=== PATIENT | female | born 1990 | race Caucasian/White ===

== ENCOUNTER 2019-02-23 22:48 | Emergency (ER) | payer MEDICAID ==
[~2019-02-23] VITALS: Ht 162.6 cm; Wt 109.1 kg
[2019-02-24] MEDS ORDERED: IBUP80TA PO (01:08)
[2019-02-24] MEDS ORDERED: KETOROLAC TROMETHAMINE 10 MG TAB PO ONE (01:15)
[2019-02-24 01:19] VITALS: BP 116/59
--- NOTE | 2019-02-24 08:48 | REP ---
Right foot four views : There is no fracture or dislocation. Mineralization and joint spaces are normal. There are no calcifications or foreign bodies. Impression: Negative right foot . Electronically Signed by Miguel Bueno MD 02/24/2019 08:39 A
== END 2019-02-24 01:21 | disposition home or self-care (01) ==
LOC: M ED 22:48
DX: S93.501A Unspecified sprain of right great toe, initial encounter (principal); X58.XXXA Exposure to other specified factors, initial encounter; Y92.89 Other specified places as the place of occurrence of the external cause

== ENCOUNTER 2019-06-08 21:53 | Day surgery (SDC) | payer MEDICAID, OTHER ==
[~2019-06-08] VITALS: Ht 162.6 cm; Wt 108.0 kg
[~2019-06-08 21:53] MED LIST: IBUP80TA PO
[2019-06-08] MEDS ORDERED: MORPHINE 2 MG/ML 1ML VIAL (J2270) IV ONE (22:15)
[2019-06-08] MEDS ORDERED: ONDANSETRON 4MG/2ML VIAL (J2405) IV ONE (22:15)
[2019-06-08 22:37] LABS: BASO % 0.3 % (0.0-1.0); EOS # 0.2 10^3/uL (0.0-0.5); EOS % 1.5 % (0.0-3.0); HEMATOCRIT 42.7 % (36.0-47.0); HEMOGLOBIN 13.9 g/dl (12.0-15.5); LYMPH # 2.7 10^3/uL (1.5-5.0); MEAN CORPUSCULAR HEMOGLOBIN 28.9 pg (27.0-33.0); MEAN CORPUSCULAR HGB CONC 32.6 g/dl (32.0-36.5); MEAN CORPUSCULAR VOLUME 88.8 fl (80.0-96.0); MONO # 0.7 10^3/uL (0.0-0.8); MONO % 5.1 % (0.0-5.0); NEUTROPHILS # 9.3 10^3/uL (1.5-8.5); NEUTROPHILS % 71.7 % (36.0-66.0); PLATELET COUNT, AUTOMATED 281 10^3/uL (150-450); RED BLOOD COUNT 4.81 10^6/uL (4.00-5.40)
[2019-06-08] MEDS ORDERED: ISOVUE-370 76% 100ML VIAL (Q9967) As Ordered ONE (22:45)
[2019-06-08 22:57] LABS: BLOOD UREA NITROGEN 12 MG/DL (7-18); CREATININE FOR GFR 0.96 MG/DL (0.55-1.30); GLUCOSE, FASTING 85 MG/DL (70-100)
[2019-06-08 22:58] LABS: ALBUMIN 3.7 GM/DL (3.2-5.2); ALT/SGPT 30 U/L (12-78); BILIRUBIN,DIRECT < 0.1 MG/DL (0.0-0.2); BILIRUBIN,TOTAL 0.4 MG/DL (0.2-1.0); CALCIUM LEVEL 9.1 MG/DL (8.5-10.1); CARBON DIOXIDE LEVEL 26 MEQ/L (21-32); CHLORIDE LEVEL 108 MEQ/L (98-107); GLOMERULAR FILTRATION RATE > 60.0 (>60); LIPASE 160 U/L (73-393); POTASSIUM SERUM 3.7 MEQ/L (3.5-5.1); SODIUM LEVEL 141 MEQ/L (136-145)
[2019-06-08] MEDS ORDERED: NS 1,000 ML IV ONE (23:45)
--- NOTE | 2019-06-08 23:51 | REPVR ---
PROCEDURE INFORMATION: Exam: CT Abdomen And Pelvis With Contrast Exam date and time: 06/08/2019 11:07 PM Clinical history: 29 years old, female; Abdominal pain; Localized; Upper; Additional info: Upper abd pain, eval for pancreatitis, pyelonephritis TECHNIQUE: Imaging protocol: Computed tomography of the abdomen and pelvis with intravenous contrast. Axial, coronal and sagittal reformatted images were created and reviewed. Radiation optimization: All CT scans at this facility use at least one of these dose optimization techniques: automated exposure control; mA and/or kV adjustment per patient size (includes targeted exams where dose is matched to clinical indication); or iterative reconstruction. Contrast material: ISOVUE 370; Contrast volume: 100 ml; Contrast route: IV; COMPARISON: No relevant prior studies available. FINDINGS: Mediastinum: Small hiatal hernia. Liver: Mild hepatomegaly. Mild hepatic steatosis. Gallbladder and bile ducts: No radiodense gallstones. No biliary ductal dilatation. Pancreas: Unremarkable. Spleen: Unremarkable. Adrenals: Unremarkable. Kidneys and ureters: Punctate nonobstructing left renal calculus. No hydronephrosis. Stomach and bowel: No bowel wall thickening. No obstruction. No pneumatosis. Appendix: Dilated (10 mm), somewhat thickened appendix with subtle periappendiceal haziness. Intraperitoneal space: Trace nonspecific free pelvic fluid, likely physiologic. No organized fluid collection. No free air. Vasculature: Unremarkable. No aneurysm. Lymph nodes: No pathologically enlarged lymph nodes. Bladder: Unremarkable. Reproductive: Probable involuting left ovarian corpus luteal cyst. Bones/joints: No acute osseous abnormality. Soft tissues: Small, fat-containing umbilical hernia. IMPRESSION: 1. Dilated, somewhat thickened appendix with subtle periappendiceal haziness, concerning for mild/early acute appendicitis. No abscess, obstruction or free air. 2. Additional findings, as above. Electronically signed by: Sammy Eagle On 06/08/2019 23:50:45 PM
[2019-06-09] MEDS ORDERED: PIPERACILLIN/TAZOBACTAM SOD 3.375 GM in D5W MINI-BAG PLUS 50 ML IV ONE ×2
[2019-06-09] MEDS ORDERED: MORPHINE 4 MG/ML 1ML VIAL/SYRINGE (J2270) IV PRN (00:15)
[2019-06-09] MEDS ORDERED: ONDANSETRON 4MG/2ML VIAL (J2405) IV PRN ×2 (00:15→13:45)
[2019-06-09] MEDS ORDERED: 12 H0.05 NARES (00:20)
[2019-06-09] MEDS ORDERED: ACET-908 PO (00:20)
[2019-06-09 00:57] VITALS: BP 121/78
[2019-06-09] MEDS: LR 1,000 ML IV SCH ×2 (01:25→09:37)
[2019-06-09 02:54] VITALS: BP 133/80
[2019-06-09 06:00] VITALS: BP 114/64
[2019-06-09] MEDS ORDERED: KETOROLAC 30 MG/ML VIAL (J1885) IV PRN ×2 (09:45→13:45)
[2019-06-09] MEDS ORDERED: NORCO, ANEXSIA 5/325MG TABLET (HYDROcodone/ACETAMINOPHEN) PO PRN (09:45)
[2019-06-09] MEDS ORDERED: ACETAMINOPHEN TAB 650MG DOSE (2X325MG) PO PRN (09:45)
--- NOTE | 2019-06-09 10:48 | HPE ---
DATE OF ADMISSION: 06/09/2019 CHIEF COMPLAINT: Abdominal pain. HISTORY OF PRESENT ILLNESS: The patient is a 29-year-old female, who presents with generalized abdominal pain, one episode of nausea and vomiting that started on Sunday morning. Pain got progressively worse throughout the day Sunday and into Sunday. Sunday evening she came to emergency room, found to have slightly a elevated white count at 13 as well as findings suggestive of early appendicitis on her CT. I was called to admit her. This morning she is still having persistent pain. She is more tender in the right side than on the left. No problems with urination or bowel movements. No recent trauma. No changes with recent illnesses. PAST MEDICAL HISTORY: Negative. PAST SURGICAL HISTORY: Tonsils and adenoids. ALLERGIES: None. MEDICATIONS: None. SOCIAL HISTORY: Denies drug, alcohol, tobacco usage. FAMILY HISTORY: Noncontributory. REVIEW OF SYSTEMS: Pertinent positives and negatives as stated in the HPI. PHYSICAL EXAMINATION: Alert and oriented times three. No acute stress. Vital signs: Temperature 98.3, pulse 75, respirations 16, blood pressure 114/64, pulse oximetry 98% room air. HEENT: Pupils equal, round and react to light and accommodation. Heart: S1, S2, regular rate and rhythm. Lungs: Clear to auscultation bilaterally. Abdomen: Soft, nondistended. Tender to palpation diffusely with most tenderness in the right lower quadrant. No guarding or rigidity. Extremities: No clubbing, cyanosis or edema. LABORATORY DATA: White count 13, hemoglobin 13.9, platelets 281. Potassium 3.7, creatinine 0.96. IMAGING: CT abdomen and pelvis shows dilated thickened appendix with subtle periappendiceal haziness concerns for mild versus acute appendicitis. No abscess obstruction or free air. ASSESSMENT/PLAN: The patient is a 29-year-old female with acute appendicitis. RECOMMENDATIONS: Proceed with laparoscopic appendectomy. Risks and benefits of the procedure not limited but including bleeding, infection, hernia formation, damage to surrounding structures and need for further surgery were discussed in detail with the patient. Informed was obtained and procedure was planned for this afternoon. Postoperatively, plan will be to likely discharge her home today and she will followup me as an outpatient for post-op.
[2019-06-09] MEDS ORDERED: AMPICILLIN SOD/SULBACTAM SOD 3 GM in D5W MINI-BAG PLUS 100 ML IV SCH (11:00)
[2019-06-09] MEDS ORDERED: ROCURONIUM BROMIDE 50 MG/5 ML VIAL As Ordered ONE (11:35)
[2019-06-09] MEDS ORDERED: LIDOCAINE 2% INJ 100 MG/5 ML SDV (FOR ANES.) As Ordered ONE (11:35)
[2019-06-09] MEDS ORDERED: fentaNYL 250 MCG/5 ML INJECTION (J3010) As Ordered ONE (11:35)
[2019-06-09] MEDS ORDERED: PROPOFOL 200 MG/20 ML VIAL As Ordered ONE (11:35)
[2019-06-09] MEDS ORDERED: MIDAZOLAM INJ 2 MG/2 ML VIAL (J2250) As Ordered ONE (11:36)
[2019-06-09] MEDS ORDERED: BUPIVACAINE/EPIN 0.25% 30 ML VIAL As Ordered ONE (12:04)
[2019-06-09] MEDS ORDERED: SUGAMMADEX SODIUM 500 MG/5 ML VIAL (BRIDION) As Ordered ONE (12:55)
[2019-06-09] MEDS ORDERED: ACETAMINOPHEN 1000MG 100ML IV BTL (OFIRMEV) (J0131 PER 10MG) As Ordered ONE (12:56)
[2019-06-09] MEDS ORDERED: dexameTHASONE 4 MG/ML 1ML VIAL (J1100) As Ordered ONE (12:56)
[2019-06-09] MEDS ORDERED: KETOROLAC 60 MG/2 ML VIAL (J1885) As Ordered ONE (12:56)
[2019-06-09] MEDS ORDERED: ONDANSETRON 4MG/2ML VIAL (J2405) As Ordered ONE ×2 (12:56→13:27)
[2019-06-09] MEDS ORDERED: METOCLOPRAMIDE INJ 10MG/2ML VIAL (J2765) As Ordered ONE (13:27)
[2019-06-09] MEDS ORDERED: oxyCODONE 5MG TAB As Ordered ONE ×2 (13:27→14:01)
--- NOTE | 2019-06-09 13:29 | RO ---
DATE OF PROCEDURE: 06/09/2019 PREOPERATIVE DIAGNOSIS: Acute appendicitis. POSTOPERATIVE DIAGNOSIS: Acute appendicitis. PROCEDURE: Laparoscopic cholecystectomy. SURGEON: Dr. Fatima DESIGN AGENT: None. ANESTHESIA: General. ESTIMATED BLOOD LOSS: 5. COMPLICATIONS: None. INDICATIONS FOR PROCEDURE: The patient is a 29-year-old female, who presents with right lower quadrant pain and found to have acute appendicitis on CT. Recommendation is to proceed with laparoscopic repair. Risks and benefits of the procedure are not limited to but including bleeding, infection, hernia formation, damage to surrounding structures or need for further surgery were discussed in detail with the patient. Informed consent obtained and procedure was planned. DESCRIPTION OF PROCEDURE: The patient brought back to operating room #3. After sufficient sedation, the abdomen was sterilely prepped and draped. Next, a time-out was done to confirm proper patient and proper procedure. Following that a 5 mm incision made in left lower quadrant, Veress needle was inserted and the abdomen was insufflated to 15 mmHg. Next, the Veress needle was removed and a 5 mm Optiview port was used to gain access to the abdomen. Once the abdomen was entered, another 8 mm supraumbilical midline incision was made, another 5 mm suprapubic midline incision made and ports were placed. Next, the patient was placed in Trendelenburg position. The cecum was identified. The appendix was freely mobile. The mesoappendix was taken down towards the base of the appendix using the Enseal. Once the base the appendix was reached it was encircled with two PDS Endoloops and ligated using the Enseal. The appendix was then placed inside of the 5 mm EndoCatch bag and brought out through the supraumbilical port site. Once the appendix was removed, the abdomen was examined. Ports were removed. The abdomen was desufflated. Skin incisions were closed with #4-0 Vicryl subcuticular sutures. The abdomen was cleaned and dried. Steri-Strips, 4 x 4 and tape were applied, thus ending procedure.
[2019-06-09] MEDS ORDERED: AUGM875T28 PO (13:30)
[2019-06-09] MEDS: oxyCODONE 5MG TAB PO PRN ×2 (13:30→14:04)
[2019-06-09] MEDS ORDERED: HYDR-4571 PO (13:30)
[2019-06-09] MEDS ORDERED: fentaNYL 100 MCG/2 ML INJECTION (J3010) As Ordered ONE (13:37)
[2019-06-09] MEDS: fentaNYL 100 MCG/2 ML INJECTION (J3010) IV PRN ×3 (13:40→15:40)
[2019-06-09] MEDS ORDERED: METOCLOPRAMIDE INJ 10MG/2ML VIAL (J2765) IV PRN (13:45)
[2019-06-09] MEDS ORDERED: LR 1,000 ML IV SCH (13:45)
[2019-06-09] MEDS ORDERED: MEPERIDINE INJ 25 MG/ML VIAL (J2175) IV PRN (13:45)
[2019-06-09 14:40] VITALS: BP 134/79
--- NOTE | 2019-06-09 15:00 | ECGEPIP ---
[facility] Test Date: 2019-06-09 Pat Name: LUIS REINOSO Department: Room: S1761-14 Gender: Female Sales Administrator: : 1990 Requested By: MARYJANE Brewster Order Number: [id number] Reading MD: David Tate Measurements Intervals [place] Rate: 59 P: 21 PA: 166 QRS: 17 QRSD: 107 T: 29 QT: 423 QTc: 421 Interpretive Statements SINUS BRADYCARDIA, Poor R wave progression, Low limb lead voltages. No prior ECG available for comparison at the time of interpretation. Electronically Signed on 06-09-2019 15:00:23 EDT by David Tate
[2019-06-09 15:10] VITALS: BP 139/80
[2019-06-09] MEDS ORDERED: SENOKOT S TAB PO SCH (21:00)
== END 2019-06-09 17:17 | disposition home or self-care (01) ==
LOC: M ED 21:53 → M SDC 06-09 00:05 → M MS5PR 06-09 00:45 → M PED 06-09 11:55 → M SDC 06-09 17:17
PROVIDERS: ATTEND Surgery
DX: K35.890 Other acute appendicitis without perforation or gangrene (principal); E66.9 Obesity, unspecified
CPT/HCPCS: 36415; 44970; 80048; 80076; 81001; 83605; 83690; 84702; 85025; 87086; 88304; 93005; 96361; 96374; 96375; 96376; 99284; J0131; J1100; J1885; J2250; J2270; J2405; J2543; J2765; J3010; Q9967

== ENCOUNTER 2019-06-19 20:53 | Emergency (ER) | payer OTHER ==
[~2019-06-19] VITALS: Ht 162.6 cm; Wt 109.1 kg
[2019-06-19 20:53] VITALS: BP 136/69
[~2019-06-19 20:53] MED LIST changes: +12 H0.05 NARES; +ACET-908 PO; +AUGM875T28 PO; +HYDR-4571 PO
[2019-06-19 21:57] LABS: HEMOGLOBIN 13.6 g/dl (12.0-15.5); MEAN CORPUSCULAR HEMOGLOBIN 28.8 pg (27.0-33.0); MEAN CORPUSCULAR HGB CONC 32.4 g/dl (32.0-36.5); MEAN CORPUSCULAR VOLUME 88.8 fl (80.0-96.0); PLATELET COUNT, AUTOMATED 312 10^3/uL (150-450); RED BLOOD COUNT 4.73 10^6/uL (4.00-5.40); WHITE BLOOD COUNT 11.3 10^3/uL (4.0-10.0)
[2019-06-19] MEDS ORDERED: NS 1,000 ML IV ONE (22:15)
[2019-06-19] MEDS ORDERED: KETOROLAC 30 MG/ML VIAL (J1885) IV ONE (22:15)
[2019-06-19] MEDS ORDERED: ONDANSETRON 4MG/2ML VIAL (J2405) IV ONE (22:15)
[2019-06-19 22:21] LABS: ALBUMIN 3.8 GM/DL (3.2-5.2); ALT/SGPT 31 U/L (12-78); BILIRUBIN,TOTAL 0.2 MG/DL (0.2-1.0); BLOOD UREA NITROGEN 10 MG/DL (7-18); CALCIUM LEVEL 9.2 MG/DL (8.5-10.1); CARBON DIOXIDE LEVEL 27 MEQ/L (21-32); CHLORIDE LEVEL 109 MEQ/L (98-107); CREATININE FOR GFR 0.88 MG/DL (0.55-1.30); GLOMERULAR FILTRATION RATE > 60.0 (>60); GLUCOSE, FASTING 104 MG/DL (70-100); LIPASE 190 U/L (73-393); POTASSIUM SERUM 3.7 MEQ/L (3.5-5.1); SODIUM LEVEL 141 MEQ/L (136-145); TOTAL PROTEIN 7.2 GM/DL (6.4-8.2)
[2019-06-19] MEDS ORDERED: ISOVUE-370 76% 100ML VIAL (Q9967) As Ordered ONE (22:24)
--- NOTE | 2019-06-19 22:57 | REPVR ---
PROCEDURE INFORMATION: Exam: CT Abdomen And Pelvis With Contrast Exam date and time: 06/19/2019 10:31 PM Clinical history: 29 years old, female; Abdominal pain; Generalized; Prior surgery; Surgery date: 3-7 days post-operative; Surgery type: Appendectomy 1wk ago; Additional info: 1wk post appy, severe general abd pain, n TECHNIQUE: Imaging protocol: Computed tomography of the abdomen and pelvis with intravenous contrast. Axial, coronal and sagittal reformatted images were created and reviewed. Radiation optimization: All CT scans at this facility use at least one of these dose optimization techniques: automated exposure control; mA and/or kV adjustment per patient size (includes targeted exams where dose is matched to clinical indication); or iterative reconstruction. Contrast material: ISOVUE 370; Contrast volume: 100 ml; Contrast route: IV; COMPARISON: CT ABD/PEL W/IV CONTRAST ONLY 06/08/2019 11:05 PM FINDINGS: Liver: Mild hepatomegaly. Diffuse hepatic steatosis. Gallbladder and bile ducts: No radiodense gallstones. No biliary ductal dilatation. Pancreas: Unremarkable. Spleen: Unremarkable. Adrenals: Unremarkable. Kidneys and ureters: No mass. No radiodense calculi. No hydronephrosis. Stomach and bowel: No bowel wall thickening. No obstruction. No pneumatosis. Appendix: Postoperative changes associated with recent appendectomy. Intraperitoneal space: No free fluid. No organized fluid collection. No free air. Vasculature: Unremarkable. No aneurysm. Lymph nodes: No pathologically enlarged lymph nodes. Bladder: Unremarkable. Reproductive: Unremarkable. Bones/joints: No acute osseous abnormality. Mild degenerative changes. Soft tissues: Small, fat-containing umbilical hernia. IMPRESSION: 1. Postoperative changes associated with recent appendectomy. No evidence of postsurgical complication. 2. Additional findings, as above. Electronically signed by: Sammy Eagle On 06/19/2019 22:57:15 PM
[2019-06-19] MEDS ORDERED: PERCOCET 5MG/325MG TAB PO ONE (23:15)
[2019-06-19] MEDS ORDERED: MORPHINE 4 MG/ML 1ML VIAL/SYRINGE (J2270) IV ONE (23:15)
[2019-06-20] MEDS ORDERED: fentaNYL 100 MCG/2 ML INJECTION (J3010) IV ONE (00:30)
[2019-06-20] MEDS ORDERED: NORC1TAB7 PO (01:13)
== END 2019-06-20 01:27 | disposition home or self-care (01) ==
LOC: M ED 20:53
DX: R10.84 Generalized abdominal pain (principal); Z98.890 Other specified postprocedural states
CPT/HCPCS: 74177; 80053; 81001; 83605; 83690; 84702; 85027; 87040; 96374; 96375; 99284; J1885; J2405; J3010; Q9967

== ENCOUNTER 2019-09-23 22:08 | Emergency (ER) | payer OTHER ==
[~2019-09-23] VITALS: Ht 162.6 cm; Wt 95.5 kg
--- NOTE | 2019-09-24 00:15 | REPVR ---
PROCEDURE INFORMATION: Exam: US First Trimester, Transabdominal Exam date and time: 09/23/2019 11:23 PM Age: 29 years old Clinical indication: complicated by abdominal or pelvic pain; Lower; First trimester; Gestational age or lmp: Lmp 08/02/19; ; Additional info: R pelvic pain 7wks preg TECHNIQUE: Imaging protocol: Real-time transabdominal obstetrical ultrasound of the maternal pelvis and a first trimester , less than 14 weeks 0 days, with image documentation. COMPARISON: CT ABD/PEL W/IV CONTRAST ONLY 06/08/2019 11:05 PM FINDINGS: GESTATION: Gestation: Single living intrauterine . Heart rate: 163 beats per minute. Placenta: No subchorionic hemorrhage. Amniotic fluid: Normal for gestational age. BIOMETRY: Estimated gestational age: 8 weeks 5 days [place]Rump length: 2.1 cm. Estimated due date: Estimated date of delivery: 04/29/2020. MATERNAL: Uterus: Unremarkable. Cervix: Unremarkable. Right adnexa: Unremarkable. Left adnexa: Unremarkable. Intraperitoneal: No intraperitoneal free fluid. IMPRESSION: 1. Single living intrauterine with estimated gestational age of 8 weeks 5 days. 2. No abnormalities are seen. Electronically signed by: Juan Griffin On 09/24/2019 00:15:07 AM
[2019-09-24 00:24] LABS: APPEARANCE, URINE HAZY (CLEAR); BACTERIA, URINE AUTO NEGATIVE (NEGATIVE); BILIRUBIN, URINE AUTO NEGATIVE (NEGATIVE); BLOOD, URINE BLOOD NEGATIVE (NEGATIVE); COLOR, URINE YELLOW (YELLOW); GLUCOSE, URINE (UA) AUTO NEGATIVE (NEGATIVE); KETONE, URINE AUTO NEGATIVE (NEGATIVE); LEUKOCYTE ESTERASE, URINE AUTO TRACE (NEGATIVE); MUCUS, URINE SMALL (NEGATIVE); NITRITE, URINE AUTO NEGATIVE (NEGATIVE); PROTEIN, URINE AUTO NEGATIVE (NEGATIVE); RBC, URINE AUTO 2 /HPF (0-3); SPECIFIC GRAVITY URINE AUTO 1.014 (1.002-1.035); SQUAMOUS EPITHELIAL CELL UR AU 2 /HPF (0-6); UROBILINOGEN, URINE AUTO 0.2 mg/dL (0.0-2.0); WBC, URINE AUTO 1 /HPF (0-3)
[2019-09-24 00:25] LABS: HEMATOCRIT 41.6 % (36.0-47.0); HEMOGLOBIN 14.1 g/dl (12.0-15.5); MEAN CORPUSCULAR HEMOGLOBIN 29.4 pg (27.0-33.0); MEAN CORPUSCULAR HGB CONC 33.9 g/dl (32.0-36.5); MEAN CORPUSCULAR VOLUME 86.7 fl (80.0-96.0); PLATELET COUNT, AUTOMATED 283 10^3/uL (150-450)
[2019-09-24 00:35] LABS: ALBUMIN 3.5 GM/DL (3.2-5.2); ALT/SGPT 19 U/L (12-78); BILIRUBIN,TOTAL 0.5 MG/DL (0.2-1.0); BLOOD UREA NITROGEN 8 MG/DL (7-18); CALCIUM LEVEL 9.1 MG/DL (8.5-10.1); CARBON DIOXIDE LEVEL 22 MEQ/L (21-32); CHLORIDE LEVEL 107 MEQ/L (98-107); CREATININE FOR GFR 0.69 MG/DL (0.55-1.30); GLOMERULAR FILTRATION RATE > 60.0 (>60); GLUCOSE, FASTING 78 MG/DL (70-100); POTASSIUM SERUM 3.9 MEQ/L (3.5-5.1); SODIUM LEVEL 139 MEQ/L (136-145); TOTAL PROTEIN 6.7 GM/DL (6.4-8.2)
[2019-09-24 00:59] VITALS: BP 139/76
[2019-09-24 01:05] LABS: HCG, SERUM QUANTITATIVE 62192 MIU/ML
== END 2019-09-24 01:00 | disposition home or self-care (01) ==
LOC: M ED 22:08
DX: O26.891 Other specified pregnancy related conditions, first trimester (principal); R10.9 Unspecified abdominal pain; Z3A.08 8 weeks gestation of pregnancy

== ENCOUNTER → 2019-09-23 | Outpatient (REF) | payer OTHER ==
[~2019-09-23] MED LIST changes: +NORC1TAB7 PO
== END ==
LOC: M LAB REF 18:59
PROVIDERS: ATTEND Nurse Practitioner Family
DX: R35.0 Frequency of micturition (principal)

== ENCOUNTER → 2019-10-13 | Outpatient (CLI) | payer OTHER ==
[2019-10-13 12:52] LABS: BASO % 0.4 % (0.0-1.0); EOS # 0.3 10^3/uL (0.0-0.5); EOS % 2.8 % (0.0-3.0); HEMATOCRIT 40.2 % (36.0-47.0); HEMOGLOBIN 13.4 g/dl (12.0-15.5); LYMPH # 2.2 10^3/uL (1.5-5.0); MEAN CORPUSCULAR HEMOGLOBIN 28.9 pg (27.0-33.0); MEAN CORPUSCULAR HGB CONC 33.3 g/dl (32.0-36.5); MEAN CORPUSCULAR VOLUME 86.6 fl (80.0-96.0); MONO # 0.6 10^3/uL (0.0-0.8); NEUTROPHILS # 6.1 10^3/uL (1.5-8.5); NEUTROPHILS % 66.4 % (36.0-66.0); PLATELET COUNT, AUTOMATED 247 10^3/uL (150-450); RED BLOOD COUNT 4.64 10^6/uL (4.00-5.40); WHITE BLOOD COUNT 9.2 10^3/uL (4.0-10.0)
[2019-10-13 13:17] LABS: GLUCOSE CHALLENGE TEST 1 HOUR 111 MG/DL (LESS THAN 140)
[2019-10-13 13:42] LABS: RUBELLA IgG QUALITATIVE IMMUNE (IMMUNE)
[2019-10-13 14:11] LABS: HEPATITIS C VIRUS ABY INDEX < 0.0 INDEX (<0.8)
[2019-10-13 14:12] LABS: HIV 1&2 SCREEN CENTAUR NEGATIVE (NEGATIVE)
[2019-10-13 14:16] LABS: CHLAMYDIA DNA AMPLIFICATION NEGATIVE (NEGATIVE); GC DNA AMPLIFICATION NEGATIVE (NEGATIVE)
== END ==
LOC: M PLALAB 08:31
PROVIDERS: ATTEND Advanced Practice Midwife
DX: O99.211 Obesity complicating pregnancy, first trimester (principal)

== ENCOUNTER → 2019-11-12 | Outpatient (REF) | payer OTHER | LOC: M SFHCWAGY 16:58 | PROVIDERS: ATTEND Advanced Practice Midwife | DX: Z34.82 Encounter for supervision of other normal pregnancy, second trimester (principal) ==

== ENCOUNTER → 2019-12-10 | Outpatient (CLI) | payer OTHER ==
--- NOTE | 2019-12-11 04:44 | REP ---
Clinical: Anatomical evaluation. Comparison: 09/23/2019 . Findings: Examination demonstrates a single live intrauterine in cephalic presentation. motion is identified by technologist. Placenta is noted anterior and grade I without evidence for placenta previa or abruption. Amniotic fluid volume is normal. Cervix measures 3.4 cm in length and appears closed. No evidence for nuchal cord. Gestational age by LMP 19 weeks 6 days with GABY 04/29/2020 . Gestational age by current measurements 19 weeks 6 days with GABY 04/29/2020 . FHR equals 153 beats per minute. BPD 4.6 cm 20 weeks 0 days HC 17.2 cm 19 weeks 5 days AC 14.8 cm 20 weeks 0 days FL 2.9 cm 19 weeks 0 days HL 2.9 cm 19 weeks 3 days HC/AC ratio 1.17 Estimated weight 303 grams ( 37th percentile). Anatomical assessment demonstrates normal structures including cranium, choroid plexus, cavum, cerebellum/posterior fossa, facial features, lungs, diaphragm, stomach, cord insertion/three-vessel cord, kidneys/bladder, spine, and extremities. Impression: Single live intrauterine in cephalic presentation demonstrating appropriate interval growth. Limited evaluation of the heart/ventricular outflow tracts noted. Remainder of the anatomical assessment is complete and normal.
== END ==
LOC: M WHC 09:25
PROVIDERS: ATTEND Advanced Practice Midwife
DX: Z34.82 Encounter for supervision of other normal pregnancy, second trimester (principal); Z36.89 Encounter for other specified antenatal screening; Z3A.19 19 weeks gestation of pregnancy

== ENCOUNTER → 2019-12-18 | Outpatient (CLI) | payer OTHER ==
--- NOTE | 2019-12-18 18:53 | REP ---
Clinical: Anatomical evaluation. Comparison: 12/10/2019 . Findings: Examination demonstrates a single live intrauterine in cephalic presentation. motion is identified by technologist. Placenta is noted anterior and grade I without evidence for placenta previa or abruption. Amniotic fluid volume is normal. Cervix measures 3.5 cm in length and appears closed. No evidence for nuchal cord. Gestational age by LMP 21 weeks 0 days with GABY 04/29/2020 . Gestational age by current measurements 20 weeks 5 days with GABY 05/01/2020 . FHR equals 158 beats per minute. Estimated weight 386 grams ( 43rd percentile). Anatomical assessment demonstrates normal structures including cranium, facial features, lungs, cardiac ventricular outflow tracts, diaphragm, stomach, cord insertion/three-vessel cord, kidneys/bladder. Impression: 1. Single live intrauterine in cephalic presentation demonstrating appropriate interval growth. 2. Continued limited evaluation of the four-chamber heart. Remainder of the anatomical assessment is complete and normal.
== END ==
LOC: M WHC 09:29
PROVIDERS: ATTEND Advanced Practice Midwife
DX: Z34.82 Encounter for supervision of other normal pregnancy, second trimester (principal)

== ENCOUNTER → 2020-01-12 | Outpatient (CLI) | payer OTHER ==
--- NOTE | 2020-01-13 02:50 | REP ---
Clinical: Anatomical evaluation. Comparison: 12/18/2019 . Findings: Examination demonstrates a single live intrauterine in cephalic presentation. motion is identified by technologist. Placenta is noted anterior and grade I without evidence for placenta previa or abruption. Amniotic fluid volume is normal. Cervix measures 3.3 cm in length and appears closed. No evidence for nuchal cord. Gestational age by first US 24 weeks 4 days with GABY 04/29/2020 . Gestational age by current measurements 24 weeks 0 days with GABY 05/03/2020 . FHR equals 144 beats per minute. Estimated weight 691 grams ( 38th percentile). Anatomical assessment again demonstrate suboptimal evaluation of the heart due to positioning. Impression: Single live intrauterine in cephalic presentation demonstrating appropriate estimated weight and growth. Limited evaluation of the heart again noted due to positioning.
== END ==
LOC: M WHC 14:23
PROVIDERS: ATTEND Advanced Practice Midwife
DX: O99.212 Obesity complicating pregnancy, second trimester (principal); Z3A.24 24 weeks gestation of pregnancy

== ENCOUNTER → 2020-01-12 | Outpatient (REF) | payer OTHER ==
[2020-01-12 15:36] LABS: HEMATOCRIT 39.8 % (36.0-47.0); HEMOGLOBIN 12.9 g/dl (12.0-15.5); MEAN CORPUSCULAR HEMOGLOBIN 28.9 pg (27.0-33.0); MEAN CORPUSCULAR HGB CONC 32.4 g/dl (32.0-36.5); PLATELET COUNT, AUTOMATED 256 10^3/uL (150-450); RED BLOOD COUNT 4.47 10^6/uL (4.00-5.40); WHITE BLOOD COUNT 11.8 10^3/uL (4.0-10.0)
== END ==
LOC: M PLALAB 12:04
PROVIDERS: ATTEND Advanced Practice Midwife
DX: O99.212 Obesity complicating pregnancy, second trimester (principal)

== ENCOUNTER → 2020-02-10 | Outpatient (CLI) | payer OTHER ==
[~2020-02-10] MED LIST changes: +OMEP10CASR PO; +PRENTAB9 PO
--- NOTE | 2020-02-10 17:02 | REP ---
Clinical: Anatomical evaluation. Comparison: 01/12/2020 . Findings: Examination demonstrates a single live intrauterine in cephalic presentation. motion is identified by technologist. Placenta is noted anterior and grade I without evidence for placenta previa or abruption. Amniotic fluid volume is normal. Cervix measures 3.0 cm in length and appears closed. No evidence for nuchal cord. Gestational age by first US 28 weeks 5 days with GABY 04/29/2020 . Gestational age by current measurements 28 weeks 2 days with GABY 05/02/2020 . FHR equals 152 beats per minute. Estimated weight 1197 grams (30th percentile). Anatomical assessment demonstrates normal four-chamber heart/ventricular outflow tracts. Impression: Single live intrauterine in cephalic presentation demonstrating appropriate estimated weight and growth. In conjunction with prior examination anatomical assessment is complete and normal.
== END ==
LOC: M WHC 12:55
PROVIDERS: ATTEND Advanced Practice Midwife
DX: Z36.2 Encounter for other antenatal screening follow-up (principal); Z3A.28 28 weeks gestation of pregnancy

== ENCOUNTER → 2020-02-19 | Outpatient (REF) | payer OTHER ==
[~2020-02-19] MED LIST changes: +MAPA500T2 PO; +VALT500T PO
== END ==
LOC: M SFHCWAGY 17:12
PROVIDERS: ATTEND Advanced Practice Midwife
DX: R35.0 Frequency of micturition (principal)

== ENCOUNTER → 2020-03-21 | Outpatient (CLI) | payer OTHER | LOC: M LDO 03:35 | PROVIDERS: ATTEND Specialist | DX: O26.893 Other specified pregnancy related conditions, third trimester (principal); R10.30 Lower abdominal pain, unspecified; Z3A.34 34 weeks gestation of pregnancy ==

== ENCOUNTER → 2020-04-01 | Outpatient (REF) | payer OTHER | LOC: M LAB REF 15:13 | PROVIDERS: ATTEND Specialist | DX: Z34.83 Encounter for supervision of other normal pregnancy, third trimester (principal); Z3A.00 Weeks of gestation of pregnancy not specified ==

== ENCOUNTER 2020-04-28 22:52 | Outpatient (CLI) | payer OTHER ==
[~2020-04-28] VITALS: Ht 162.6 cm; Wt 113.9 kg
[~2020-04-28 22:52] MED LIST changes: -MAPA500T2 PO; -VALT500T PO
[2020-04-28 23:14] VITALS: BP 108/54
== END 2020-04-29 00:05 | disposition home or self-care (01) ==
LOC: M LDO 22:52
PROVIDERS: ATTEND Advanced Practice Midwife
DX: O47.1 False labor at or after 37 completed weeks of gestation (principal); Z3A.39 39 weeks gestation of pregnancy

== ENCOUNTER 2020-05-01 19:57 | Inpatient (IN) | payer OTHER ==
[~2020-05-01] VITALS: Ht 154.9 cm; Wt 111.4 kg
[2020-05-01] VITALS (17 sets, daily range): BP systolic 102–144; BP diastolic 56–80
[2020-05-01] MEDS ORDERED: MAPA500T2 PO (21:13)
[2020-05-01] MEDS ORDERED: VALT500T PO (21:13)
[2020-05-01] MEDS ORDERED: LR 1,000 ML IV SCH (21:21)
[2020-05-01] MEDS ORDERED: LACTATED RINGER'S 1000 ML IV STA (21:21)
[2020-05-01] MEDS ORDERED: valACYclovir HCL 500 MG TAB PO ONE (21:30)
[2020-05-01 21:55] LABS: HEMATOCRIT 36.8 % (36.0-47.0); MEAN CORPUSCULAR HEMOGLOBIN 27.6 pg (27.0-33.0); MEAN CORPUSCULAR HGB CONC 32.6 g/dl (32.0-36.5); MEAN CORPUSCULAR VOLUME 84.8 fl (80.0-96.0); PLATELET COUNT, AUTOMATED 208 10^3/uL (150-450); RED BLOOD COUNT 4.34 10^6/uL (4.00-5.40); WHITE BLOOD COUNT 12.7 10^3/uL (4.0-10.0)
[2020-05-01] MEDS ORDERED: OXYTOCIN 30 UNITS IN 0.9% NaCl 500ML IV BAG (J2590) As Ordered ONE (22:11)
[2020-05-01] MEDS ORDERED: FENTANYL 2MCG/ML ROPIVACAINE 0.2% IN 0.9% NACL 100ML IVBAG As Ordered ONE (22:26)
[2020-05-01] MEDS ORDERED: LACTATED RINGER'S 1000 ML IV PRN (22:50)
[2020-05-01] MEDS ORDERED: NALOXONE INJ 0.4MG/1ML VIAL (J2310 PER 1MG) IV PRN (22:50)
[2020-05-01] MEDS ORDERED: diphenhydrAMINE 50MG/ML VIAL (J1200) IV PRN (22:50)
[2020-05-01] MEDS ORDERED: EPIDURAL COMMENT XX SCH (22:50)
[2020-05-01] MEDS ORDERED: ONDANSETRON 4MG/2ML VIAL IV PRN (22:50)
[2020-05-01] MEDS ORDERED: FENTANYL/ROPIVACAINE/NACL BAG 100 ML EPIDURAL SCH (22:50)
[2020-05-01] MEDS ORDERED: ePHEDrine SULFATE 25 MG/5 ML(5MG/ML) SYRINGE IV PRN (22:50)
[2020-05-01] MEDS ORDERED: REFRIGERATOR IV KEYS XX PRN (22:50)
[2020-05-01] MEDS ORDERED: EPIDURAL/PCA KEYS XX PRN (22:50)
[2020-05-02] VITALS (10 sets, daily range): BP systolic 102–190; BP diastolic 49–115
[2020-05-02] MEDS ORDERED: IBUPROFEN 600MG TAB PO PRN (01:30)
[2020-05-02] MEDS ORDERED: OXYTOCIN DRIP 30 UNITS in IV 1 EA IV ONE (01:30)
[2020-05-02] MEDS ORDERED: DIBUCAINE 1% OINTMENT 30GM TOP PRN (01:30)
[2020-05-02] MEDS ORDERED: ACETAMINOPHEN TAB 650MG DOSE (2X325MG) PO PRN (01:30)
[2020-05-02] MEDS ORDERED: RHOGAM 300 MCG (1500 IU) INJ (J2790) IM SCH (01:30)
[2020-05-02] MEDS ORDERED: METHYLERGONOVINE MALEATE 0.2 MG TAB PO PRN (01:30)
[2020-05-02] MEDS ORDERED: MEASLES,MUMPS,RUBELLA VACCINE INJ (MMR-II) (90707) SC SCH (01:30)
[2020-05-02] MEDS ORDERED: ACETAMINOPHEN 500 MG TAB PO PRN (01:30)
[2020-05-02] MEDS ORDERED: DOCUSATE SODIUM 100 MG CAP PO PRN (01:30)
[2020-05-02] MEDS: PRENATAL VITAMINS CHEWABLE TABLET PO SCH (07:55)
[2020-05-02] MEDS: IBUPROFEN 800 MG TAB PO PRN ×2 (07:56→15:46)
[2020-05-03 06:00] VITALS: BP 131/69
[2020-05-03] MEDS: PRENATAL VITAMINS CHEWABLE TABLET PO SCH (08:24)
[2020-05-03] MEDS ORDERED: INFLUENZA QUADRIVALENT PF VACCINE 0.5ML SYRINGE IM ONE (09:00)
[2020-05-03] MEDS: IBUPROFEN 800 MG TAB PO PRN (12:23)
[2020-05-03 18:00] VITALS: BP 134/77
--- NOTE | 2020-05-11 15:25 | HPE ---
DATE OF ADMISSION: 05/01/2020. HISTORY OF PRESENT ILLNESS: A 30-year-old, G3, P2, female at 40 and 2/7 weeks gestation, who presents with regular contractions every 3-4 minutes for the last several hours. She denies vaginal bleeding. Contractions increased in intensity. PAST OBSTETRICAL HISTORY: Spontaneous vaginal delivery x2. PAST MEDICAL HISTORY: None. PAST SURGICAL HISTORY: 1. May 2019, laparoscopic appendectomy. 2. Tonsillectomy. ALLERGIES: None. SOCIAL HISTORY: Patient denies cigarettes, alcohol or drug use. FAMILY HISTORY: Noncontributory. PHYSICAL EXAMINATION: VITALS: Blood pressure 134/74, pulse 84. GENERAL: She appears uncomfortable. HEAD AND NECK: Normal. LUNGS: Clear. HEART: Regular rate and rhythm. ABDOMEN: Nontender, gravid, heart tones Category I. Contractions every 3-4 minutes. STERILE VAGINAL EXAM: Cervix 5 cm, 100%, -1, posterior soft vertex. EXTREMITIES: Nontender. LABORATORY DATA: Blood type B+. GBS negative. ASSESSMENT: A 30-year-old, G3, P2, female at 40 and 2/7 weeks gestation, who presents in active labor. PLAN: Patient was admitted on 05/01/2020. [facility]
== END 2020-05-03 18:35 | disposition home or self-care (01) | DRG 560 ==
LOC: M LDO 19:57 → M LDI 20:09 → M OBS 05-02 03:24
PROVIDERS: ADMIT Specialist; ATTEND Specialist
PROC: 10E0XZZ Delivery of Products of Conception, External Approach (ICD-10-PCS; principal; 2020-05-02)
DX: O48.0 Post-term pregnancy (principal); Z37.0 Single live birth; Z3A.40 40 weeks gestation of pregnancy

== ENCOUNTER 2020-08-13 14:06 | Emergency (ER) | payer OTHER ==
[~2020-08-13] VITALS: Ht 162.6 cm; Wt 107.7 kg
[~2020-08-13 14:06] MED LIST changes: +MAPA500T2 PO; +VALT500T PO
[2020-08-13 15:01] LABS: BASO # 0.1 10^3/uL (0.0-0.2); BASO % 0.6 % (0.0-1.0); EOS # 0.4 10^3/uL (0.0-0.5); EOS % 4.9 % (0.0-3.0); HEMATOCRIT 41.1 % (36.0-47.0); HEMOGLOBIN 12.8 g/dl (12.0-15.5); LYMPH # 2.9 10^3/uL (1.5-5.0); LYMPH % 32.3 % (24.0-44.0); MEAN CORPUSCULAR HEMOGLOBIN 26.2 pg (27.0-33.0); MEAN CORPUSCULAR HGB CONC 31.1 g/dl (32.0-36.5); MONO # 0.3 10^3/uL (0.0-0.8); MONO % 3.4 % (0.0-5.0); NEUTROPHILS # 5.2 10^3/uL (1.5-8.5); NEUTROPHILS % 58.4 % (36.0-66.0); PLATELET COUNT, AUTOMATED 309 10^3/uL (150-450); RED BLOOD COUNT 4.89 10^6/uL (4.00-5.40); WHITE BLOOD COUNT 8.9 10^3/uL (4.0-10.0)
[2020-08-13 15:24] LABS: ALBUMIN 4.1 GM/DL (3.2-5.2); ALT/SGPT 27 U/L (12-78); BILIRUBIN,DIRECT < 0.1 MG/DL (0.0-0.2); BILIRUBIN,TOTAL 0.3 MG/DL (0.2-1.0); BLOOD UREA NITROGEN 10 MG/DL (7-18); CALCIUM LEVEL 9.6 MG/DL (8.5-10.1); CARBON DIOXIDE LEVEL 26 MEQ/L (21-32); CHLORIDE LEVEL 107 MEQ/L (98-107); CREATININE FOR GFR 0.85 MG/DL (0.55-1.30); GLOMERULAR FILTRATION RATE > 60.0 (>60); GLUCOSE, FASTING 82 MG/DL (70-100); LIPASE 158 U/L (73-393); POTASSIUM SERUM 4.2 MEQ/L (3.5-5.1); SODIUM LEVEL 139 MEQ/L (136-145); TOTAL PROTEIN 7.5 GM/DL (6.4-8.2)
[2020-08-13 15:28] LABS: HCG, SERUM QUALITATIVE NEGATIVE (NEGATIVE)
[2020-08-13] MEDS ORDERED: GI COCKTAIL 50ML BTL(HYOSCYAMINE/MAALOX/LIDOCAINE VISCOUS)(1:3:1) PO ONE (16:15)
--- NOTE | 2020-08-13 17:05 | REP ---
INDICATION: RUQ pain COMPARISON: None. TECHNIQUE: Real time mercedes scale ultrasound examination using curved array transducer. FINDINGS: Gallbladder demonstrates multiple gallstones with mild wall thickening to 3.5 mm. No pericholecystic fluid is appreciated. No biliary ductal dilatation noted. Common bile duct measures 4.6 mm diameter. Liver and pancreas are normal in appearance and echotexture without focal hepatic or pancreatic lesion identified. The right kidney is normal in reniform shape and echogenicity without hydronephrosis and measures 10.1 x 5.3 x 3.9 cm. No ascites in the visualized right upper quadrant. IMPRESSION: Cholelithiasis. <Electronically signed by Donavan Boogie > 08/13/20 [id number]
[2020-08-13] MEDS ORDERED: ONDA4TAB6 PO (17:38)
[2020-08-13] MEDS ORDERED: NORC1TAB7 PO (17:38)
[2020-08-13 17:45] VITALS: BP 124/73
[2020-08-13] MEDS ORDERED: NORCO 5/325MG TABLET (BULK FOR ED) PO ONE (17:45)
== END 2020-08-13 17:57 | disposition home or self-care (01) ==
LOC: M ED 14:06
DX: K80.70 Calculus of gallbladder and bile duct without cholecystitis without obstruction (principal)

== ENCOUNTER → 2020-08-29 | Outpatient (CLI) | payer OTHER ==
[~2020-08-29] MED LIST changes: +ONDA4TAB6 PO
== END ==
LOC: M LABSMTC 09:27
PROVIDERS: ATTEND Anesthesiology
DX: Z01.812 Encounter for preprocedural laboratory examination (principal); Z20.822 Contact with and (suspected) exposure to COVID-19

== ENCOUNTER 2020-09-03 07:40 | Day surgery (SDC) | payer OTHER ==
[~2020-09-03] VITALS: Ht 162.6 cm; Wt 108.9 kg
[~2020-09-03 07:40] MED LIST changes: +LR 1,000 ML IV ONE
--- OUTSIDE RECORDS SUMMARY | 2020-09-03 07:47 | CCD ---
Author Author [facility] Organization [facility] Address Unknown Phone Unavailable Care Team Providers Care Phlebotomy Technologist Name Role Phone SANDI LION Unavailable Unavailable Sandi Lion Unavailable Unavailable ANABEL, CY PA Unavailable Unavailable ANABEL, CY PA Unavailable Unavailable ANABEL, CY PA Unavailable Unavailable ANABEL, CY PA Unavailable Unavailable ANABEL, CY PA Unavailable Unavailable ANABEL, CY PA Unavailable Unavailable ANABEL, CY PA Unavailable Unavailable ANABEL, CY PA Unavailable Unavailable ANABEL, CY PA Unavailable Unavailable ANABEL, CY PA Unavailable Unavailable ANABEL, CY PA Unavailable Unavailable ANABEL, CY PA Unavailable Unavailable ANABEL, CY PA Unavailable Unavailable ANABEL, CY PA Unavailable Unavailable ANABEL, CY PA Unavailable Unavailable ANABEL, CY PA Unavailable Unavailable ANABEL, CY PA Unavailable Unavailable ANABEL, CY PA Unavailable Unavailable ANABEL, CY PA Unavailable Unavailable ANABEL, CY PA Unavailable Unavailable ANABEL, CY PA Unavailable Unavailable ANABEL, CY PA Unavailable Unavailable ANABEL, CY PA Unavailable Unavailable ANABEL, CY PA Unavailable Unavailable ANABEL, CY PA Unavailable Unavailable ANABEL, CY PA Unavailable Unavailable ANABEL, CY PA Unavailable Unavailable ANABEL, CY PA Unavailable Unavailable ANABEL, CY PA Unavailable Unavailable ANABEL, CY PA Unavailable Unavailable ANABEL, CY PA Unavailable Unavailable ANABEL, CY PA Unavailable Unavailable ANABEL, CY PA Unavailable Unavailable ANABEL, CY PA Unavailable Unavailable ANABEL, CY PA Unavailable Unavailable ANABEL, CY PA Unavailable Unavailable ANABEL, CY PA Unavailable Unavailable ANABEL, CY PA Unavailable Unavailable Fang, Irena WOMEN'S SOCCER COACH Unavailable Unavailable Fang, Irena WOMEN'S SOCCER COACH Unavailable Unavailable Fang, Irena WOMEN'S SOCCER COACH Unavailable Unavailable Fang, Irena WOMEN'S SOCCER COACH Unavailable Unavailable Fang, Irena WOMEN'S SOCCER COACH Unavailable Unavailable Fang, Irena WOMEN'S SOCCER COACH Unavailable Unavailable Fang, Irena WOMEN'S SOCCER COACH Unavailable Unavailable Fang, Irena WOMEN'S SOCCER COACH Unavailable Unavailable Fang, Irena WOMEN'S SOCCER COACH Unavailable Unavailable Fang, Irena WOMEN'S SOCCER COACH Unavailable Unavailable Fang, Irena WOMEN'S SOCCER COACH Unavailable Unavailable Re-disclosure Warning The records that you are about to access may contain information from federally-assisted alcohol or drug abuse programs. If such information is present, then the following federally mandated warning applies: This information has been disclosed to you from records protected by federal confidentiality rules (42 CFR part 2). The federal rules prohibit you from making any further disclosure of this information unless further disclosure is expressly permitted by the written consent of the person to whom it pertains or as otherwise permitted by 42 CFR part 2. A general authorization for the release of medical or other information is NOT sufficient for this purpose. The Federal rules restrict any use of the information to criminally investigate or prosecute any alcohol or drug abuse patient.The records that you are about to access may contain highly sensitive health information, the redisclosure of which is protected by Article 27-F of the [facility] Public Health law. If you continue you may have access to information: Regarding HIV / AIDS; Provided by facilities licensed or operated by the [facility] Office of Mental Health; or Provided by the [facility] Office for People With Developmental Disabilities. If such information is present, then the following [facility] mandated warning applies: This information has been disclosed to you from confidential records which are protected by state law. State law prohibits you from making any further disclosure of this information without the specific written consent of the person to whom it pertains, or as otherwise permitted by law. Any unauthorized further disclosure in violation of state law may result in a fine or usp sentence or both. A general authorization for the release of medical or other information is NOT sufficient authorization for further disc losure. Family History Family Member Name Family Member Gender Family Member Status Date o f Status Description Data Source(s) Unknown Male Problem [facility] ([facility] Encounters Encounter Providers Location Date Indications Data Source(s ) Outpatient Attender: Sandi HUNT 06/14/2020 04:30:00 PM EST [facility] Unknown [address] [facility] [place] [address] 05/04/2020 12:00:00 AM EDT eCW1 ([facility]) Unknown [address] [facility] [place] [address] 05/04/2020 12:00:00 AM EDT eCW1 ([facility]) Outpatient Attender: Sandi HUNT 03/03/2020 03:22:00 PM EDT [facility] Outpatient Attender: Sandi VARGAS 03/03/2020 03:19:01 PM EDT [facility] Outpatient Attender: Sandi HUNT 03/03/2020 03:16:00 PM EDT [facility] Outpatient Attender: Sandi VARGAS 03/03/2020 03:15:00 PM EDT [facility] Outpatient Attender: Sandi HUNT 03/03/2020 02:46:01 PM EDT [facility] Outpatient Attender: SANDI VARGAS 03/03/2020 02:46:00 PM EDT [facility] Outpatient Attender: Sandi HUNT 03/03/2020 01:54:00 PM EDT [facility] Outpatient Attender: Sandi VARGAS 03/03/2020 01:53:01 PM EDT [facility] Outpatient Attender: Sandi VARGAS 03/03/2020 01:52:00 PM EDT [facility] Outpatient Attender: Sandi VARGAS 03/03/2020 10:42:00 AM EDT [facility] ([facility]) [facility] [address] [place] [address] 03/03/2020 12:00:00 AM EDT eCW1 ([facility]) Unknown [address] [facility] [address] 03/03/2020 12:00:00 AM EDT eCW1 ([facility]) ([facility]) [facility] [address] [place] [address] 02/19/2020 12:00:00 AM EDT eCW1 ([facility]) ([facility]) [facility] [address] [place] [address] 02/05/2020 12:00:00 AM EDT eCW1 ([facility]) Outpatient 01/27/2020 06:11:00 AM EDT [facility] Unknown [address] [facility] [address] 01/18/2020 12:00:00 AM EDT eCW1 ([facility]) ([facility]) [facility] [address] [place] [address] 01/08/2020 12:00:00 AM EDT eCW1 ([facility]) Outpatient 12/23/2019 05:38:00 AM EDT [facility] [address] [place] [address] 12/11/2019 12:00:00 AM EDT eCW1 ([facility]) [facility] [address] [place] [address] 11/12/2019 12:00:00 AM EDT eCW1 ([facility]) [facility] [address] [place] [address] 11/05/2019 12:00:00 AM EDT eCW1 ([facility]) [facility] [address] [place] [address] 11/03/2019 12:00:00 AM EDT eCW1 ([facility]) [facility] [address] [place] [address] 10/08/2019 12:00:00 AM EST eCW1 ([facility]) Outpatient 10/07/2019 07:24:00 AM EST [facility] Outpatient Attender: CY Nava ry 10/03/2019 03:00:00 PM EST [facility] ([facility]) Outpatient Attender: Irena peters 09/23/2019 04:00:00 PM EST [facility] ([facility]) Immunizations Vaccine Date Status Description Data Source(s) Tdap 02/19/2020 11:19:00 AM EDT completed e CW1 ([facility]) Tdap 02/19/2020 11:19:00 AM EDT completed e CW1 ([facility]) Tdap 02/19/2020 11:19:00 AM EDT completed e CW1 ([facility]) Tdap 02/19/2020 11:19:00 AM EDT completed e CW1 ([facility]) Tdap 02/19/2020 11:19:00 AM EDT completed e CW1 ([facility]) Tdap 02/19/2020 11:19:00 AM EDT completed e CW1 ([facility]) Medications Medication Brand Name Start Date Product Form Dose Route Admi nistrative Instructions Pharmacy Instructions Status Indications Reaction Description Data Source(s) valacyclovir 500 MG Oral Tablet [Valtrex] Valtrex 500 MG Amy trex 500 MG 03/03/2020 12:00:00 AM EDT 1.0 {tablet} active Valtrex 500 MG eCW1 ([facility]) Metronidazole 500 MG Oral Tablet Metronidazole 500 MG 2019 12:00:00 AM EDT 1.0 {tablet} active Metronidazo le 500 MG eCW1 ([facility]) Metronidazole 500 MG Oral Tablet Metronidazole 500 MG 2019 12:00:00 AM EDT 1.0 {tablet} active Metronidazo le 500 MG eCW1 ([facility]) valacyclovir 500 MG Oral Tablet [Valtrex] Valtrex 500 MG Amy trex 500 MG 03/03/2020 12:00:00 AM EDT 1.0 {tablet} active Valtrex 500 MG eCW1 ([facility]) valacyclovir 500 MG Oral Tablet [Valtrex] Valtrex 500 MG Amy trex 500 MG 03/03/2020 12:00:00 AM EDT 1.0 {tablet} active Valtrex 500 MG eCW1 ([facility]) valacyclovir 500 MG Oral Tablet [Valtrex] Valtrex 500 MG Amy trex 500 MG 03/03/2020 12:00:00 AM EDT 1.0 {tablet} active Valtrex 500 MG eCW1 ([facility]) Metronidazole 500 MG Oral Tablet Metronidazole 500 MG 2019 12:00:00 AM EDT 1.0 {tablet} active Metronidazo le 500 MG eCW1 ([facility]) valacyclovir 500 MG Oral Tablet [Valtrex] Valtrex 500 MG Amy trex 500 MG 03/03/2020 12:00:00 AM EDT 1.0 {tablet} active Valtrex 500 MG eCW1 ([facility]) Metronidazole 500 MG Oral Tablet Metronidazole 500 MG 2019 12:00:00 AM EDT 1.0 {tablet} active Metronidazo le 500 MG eCW1 ([facility]) Metronidazole 500 MG Oral Tablet Metronidazole 500 MG 2019 12:00:00 AM EDT 1.0 {tablet} active Metronidazo le 500 MG eCW1 ([facility]) Omeprazole 20 MG Delayed Release Oral Capsule Omeprazole 20 MG 02/06/2020 12:00:00 AM EDT active Omeprazo le 20 MG eCW1 ([facility]) Omeprazole 20 MG Delayed Release Oral Capsule Omeprazole 20 MG 02/06/2020 12:00:00 AM EDT active Omeprazo le 20 MG eCW1 ([facility]) Omeprazole 20 MG Delayed Release Oral Capsule Omeprazole 20 MG 02/06/2020 12:00:00 AM EDT active Omeprazo le 20 MG eCW1 ([facility]) Omeprazole 20 MG Delayed Release Oral Capsule Omeprazole 20 MG 02/06/2020 12:00:00 AM EDT active Omeprazo le 20 MG eCW1 ([facility]) Omeprazole 20 MG Delayed Release Oral Capsule Omeprazole 20 MG 02/06/2020 12:00:00 AM EDT active Omeprazo le 20 MG eCW1 ([facility]) Omeprazole 20 MG Delayed Release Oral Capsule Omeprazole 20 MG 02/06/2020 12:00:00 AM EDT active Omeprazo le 20 MG eCW1 ([facility]) Insurance Providers Payer name Policy type / Coverage type Policy ID Covered constitution party ID Covered constitution party's relationship to juárez Policy Juárez Plan Information [facility]AN [facility] [id number] SP [id number] [facility] O [id number] S [id number] Sliding Fee Scale O [id number] S [id number] Managed Care - [facility] Community Plan P UNAVAILABLE S UNAVAILABLE Medicaid S UNAVAILABLE S UNAVAILA BLE [facility]AN [facility] [id number] SP [id number] MEDICAID [id number] SP [id number] ITZ MEDICAID [id number] Shelly 7 [id number] [place] BCBS [id number] Spo UFU [id number] MEDICAID [id number] Shelly [id number] ITZ MEDICAID [id number] Shelly 7 [id number] Itz Commercial [id number] Self [id number] Itz Commercial [id number] Self [id number] Itz Commercial [id number] Self [id number] [place] Commercial [id number] Self [id number] Medicaid Medigap Part B [id number] Self [id number] [place] Better [employer] Commercial [id number] Self [id number] Medicaid Medigap Part B [id number] Self [id number] [employer] Commercial [id number] Self [id number] [place] Commercial [id number] Self [id number] [place] Commercial [id number] Self [id number] Itz Commercial [id number] Self [id number] MEDICAID [id number] Shelly [id number] [place] Commercial [id number] Self [id number] Medicaid Medigap Part B [id number] Self [id number] [place] [employer] Commercial [id number] Self [id number] [place] Commercial [id number] Self [id number] Itz Commercial [id number] Self [id number] ITZ MEDICAID [id number] Shelly 7 [id number] [place] Commercial [id number] Self [id number] Itz Commercial [id number] Self [id number] [place] Commercial [id number] Self [id number] ITZ [id number] SP [id number] BCBS Ppo Health Maintenance Organization (HMO) [id number] Self [id number] [employer] [employer] Commercial [id number] Self [id number] Medicaid Medicaid [id number] Self [id number] BCBS Ppo Health Maintenance Organization (HMO) [id number] Self [id number] [place] [employer] Commercial [id number] Self [id number] Medicaid Medicaid [id number] Self [id number] Medicaid Medigap Part B [id number] Self [id number] BCBS Ppo Health Maintenance Organization (HMO) [id number] Self [id number] [employer] Commercial [id number] Self [id number] Medicaid Medigap Part B [id number] Self [id number] BCBS Ppo Health Maintenance Organization (HMO) [id number] Self [id number] [place] [employer] Commercial [id number] Self [id number] Medicaid Medigap Part B [id number] Self [id number] BCBS Ppo Health Maintenance Organization (HMO) [id number] Self [id number] [employer] Commercial [id number] Self [id number] Medicaid Medigap Part B [id number] Self [id number] BCBS Ppo Health Maintenance Organization (HMO) [id number] Self [id number] [employer] [employer] Commercial [id number] Self [id number] Medicaid Medigap Part B [id number] Self [id number] BCBS Ppo Health Maintenance Organization (HMO) [id number] Self [id number] [place] [employer] Commercial [id number] Self [id number] MEDICAID GME [id number] S [id number] ITZ CARE HEA [id number] S [id number] UNAVAILABLE UNAVAILA BLE EXCELLUS BCBS [id number] Shelly VYS [id number] EXCELLUS BLUE CROSS BLUE SHIELD HEA [id number] S [id number] MEDICAID HEA [id number] ITZ MEDICAID [id number] Shelly 7 [id number] ITZ [facility] [place] [id number] P [id number] ITZ MEDICAID [id number] Shelly 7 [id number] MEDICAID [id number] Shelly [id number] EXCELLUS BCBS [id number] Shelly [id number] State Insurance Fund [id number] 18 [id number] State Insurance Fund [id number] 18 [id number] MEDICAID [id number] P [id number] [facility] 305 [id number] P [id number] [facility] [id number] [facility] UNAVAILABLE UNAVAILABLE Problems, Conditions, and Diagnoses Code Display Name Description Problem Type Effective Dates Data Source(s) 521.00 Dental caries Dental caries 03/03/2020 02:45:51 PM EDT [facility] O99.213 Obesity complicating , third tr imester Obesity complicating in third trimester Problem 02/05/2020 12:00:00 AM EDT eCW1 ([facility]) Z34.80 care Supervision of other normal P roblem 10/06/2019 12:00:00 AM EST eCW1 ([facility]) Z34.80 care Supervision of other normal P roblem 10/06/2019 12:00:00 AM EST eCW1 ([facility]) Surgeries/Procedures Procedure Description Date Indications Data Source(s) Immunization: Boostrix 0.5mL IM (TDAP) 02/19/2020 12:0 0:00 AM EDT eCW1 ([facility]) SUBSEQUENT CARE VISIT 12/11/2019 12:00:00 AM EDT eCW1 ([facility]) SMEAR, WET MOUNT, SALINE/INK 12/11/2019 12:00:00 AM ED T eCW1 ([facility]) OB Visit 11/12/2019 12:00:00 AM EDT e CW1 ([facility]) Results ID Date Data Source [id number] 08/29/2020 10:15:00 AM EST [facility] Name Value Range Interpretation Code Description Data Risa rce(s) Supporting Document(s) SARS coronavirus 2 RNA Not Detected [facility] [place] This lab was ordered by [facility] and reported by [facility]. ID Date Data Source [id number] 03/03/2020 02:05:16 PM EDT [facility] Current Problems: Dental caries (ICD-521 .00) (VVR96-Y59.9)Current Medications: AMOXICILLIN 500 MG CAPS (AMOXICILLIN) 1 tablet by mouth every 8 hours until gone; Route: ORAL Dental Chart: Procedures:Type - CDT Code - Description B - (D0220) Intraoral, periapical, first radiographic image on Tooth # 2 (Performed by Tri Candelario DMD) B - (D0140) Limited oral evaluation - problem focused on Tooth # 2 (Performed by Tri Candelario DMD) Treatments:Type - CDT Code - Description T - (D7140) Extraction, erupted tooth or exposed root (elevation and/or forceps removal) on Tooth # 2 (Performed by Tri Candelario DMD) Chart Notes:chris (Mar 03 2020 2:44PM): Additional PPE requirements due to COVID-19 in the dental setting, N95, surgical mask, hair covering, gown and shield.S: CC: "I have a bad broken tooth on the top right. It is causing me pain and discomfort. I was supposed to have it removed at [facility] back, but they do not take my insurance." O: RMHx (-) per pt. is 32 weeks . Brought MED clearance by OB and scanned into chart. HPI:about [address]:6. BP: 132/98. PA taken #2. #2 badly broken into the pulp due to caries. Slight extra-oral swelling, with sensitivty to palpation. Chronic infection present aat this time.A: DDS recommends to pt. to have #2 extracted. Advised pt. that antibiotics to be placed to [facility] in [place]. Placed OS referral to extract #2 after baby is delivered. DX: #2 badly broken due to caries into the pulp with chronic infection present at this time.P: Refer to OS.E-scribe Amoxicillin 500mg q8h until gone dispense 21 tabs zero refills Informed Pt about new pain management policy of the clinic regarding about narcotic,told pt to tylenol 500mg every 4 to 6 hrs for pain when needed. Assisted By: AM NV: New p/eTri Mae DMD by reina (03/03/2020 2:44 PM): Tooth Notes and Watches: Assessment & Plan Problems:Added: Dental caries (ICD-521.00) (JCP63-B95.9)Medications:AMOXICILLIN 500 MG CAPSMedication Changes:New Prescription:AMOXICILLIN 500 MG CAPS-1 tablet by mouth every 8 hours until gone Qty: 21[Capsule] Refills: 0 Method: ElectronicAllergies:No Known Allergies (updated 03/03/2020) Orders:Oral Surgery Referral [[id number]] Name Value Range Interpretation Code Description Data Risa rce(s) Supporting Document(s) ID Date Data Source URINE CULTURE 02/20/2020 03:40:59 AM EDT eCW1 ([facility]) Name Value Range Interpretation Code Description Data Risa rce(s) Supporting Document(s) URINE CULTURE eCW1 ([facility]) ID Date Data Source HBSAG 10/13/2019 12:00:00 AM EST eCW1 ([facility]) Name Value Range Interpretation Code Description Data Risa rce(s) Supporting Document(s) NEGATIVE NEGATIVE HBsAg eCW1 ([facility]) ID Date Data Source Glucose Challenge Test 1 Hour 10/13/2019 12:00:00 AM EST eCW 1 ([facility]) Name Value Range Interpretation Code Description Data Risa rce(s) Supporting Document(s) 111 LESS THAN 140 GLUCOSE CHALLENGE TEST 1 HOUR eCW1 ([facility]) ID Date Data Source [id number] 10/13/2019 12:00:00 AM EST eCW1 ([facility]) Name Value Range Interpretation Code Description Data Risa rce(s) Supporting Document(s) Hemoglobin A1c/Hemoglobin.total in Blood 5.0 HEMOGLOBIN A1c eCW1 ([facility]) ID Date Data Source HEPATITIS C ANTIBODY INDEX 10/13/2019 12:00:00 AM EST eCW1 ( [facility]) Name Value Range Interpretation Code Description Data Risa rce(s) Supporting Document(s) < 0.0 <0.8 HEPATITIS C VIRUS SAM IND EX eCW1 ([facility]) ID Date Data Source RUBELLA IMMUNE STATUS IgG 10/13/2019 12:00:00 AM EST eCW1 ([facility]) Name Value Range Interpretation Code Description Data Risa rce(s) Supporting Document(s) IMMUNE IMMUNE RUBELLA IgG QUALITATIVE eCW1 ( [facility]) ID Date Data Source SYPHILIS ANTIBODY (RPR SCREEN) 10/13/2019 12:00:00 AM EST eC W1 ([facility]) Name Value Range Interpretation Code Description Data Risa rce(s) Supporting Document(s) NONREACTIVE NONREACTIVE SYPHILIS eCW1 ([facility]) ID Date Data Source CHLAMYDIA & GC DNA AMPLIFICAT 10/13/2019 12:00:00 AM EST eCW 1 ([facility]) Name Value Range Interpretation Code Description Data Risa rce(s) Supporting Document(s) Chlamydia trachomatis rRNA [Presence] in Unspecified specimen by Probe and target amplification method NEGATIVE NEGATIVE CHLAMYDIA DNA AMPLIFICATION eCW1 ([facility]) ID Date Data Source CBC with Differential 10/13/2019 12:00:00 AM EST [facility] Name Value Range Interpretation Code Description Data Risa rce(s) Supporting Document(s) 13.4 12.0-15.5 HEMOGLOBIN eCW1 ([facility]) 4.64 4.00-5.40 RED BLOOD COUNT eCW1 ([facility]) 40.2 36.0-47.0 HEMATOCRIT eCW1 ([facility]) 9.2 4.0-10.0 WHITE BLOOD COUNT eCW1 ([facility]) 86.6 80.0-96.0 MEAN CORPUSCULAR VOLUME e CW1 ([facility]) 28.9 27.0-33.0 MEAN CORPUSCULAR HEMOGLOB IN eCW1 ([facility]) 12.4 11.5-14.5 RED CELL DISTRIBUTION WID TH eCW1 ([facility]) 33.3 32.0-36.5 MEAN CORPUSCULAR HGB CONC eCW1 ([facility]) 24.0 24.0-44.0 LYMPH % eCW1 ([facility]) 6.0 0.0-5.0 MONO % eCW1 ([facility]) 2.8 0.0-3.0 EOS % eCW1 ([facility]) 66.4 36.0-66.0 NEUTROPHILS % eCW1 ([facility]) 247 150-450 PLATELET COUNT, AUTOMATED eCW1 ([facility]) 0.4 0.0-1.0 BASO % eCW1 ([facility]) 6.1 1.5-8.5 NEUTROPHILS # eCW1 ([facility]) 0.6 0.0-0.8 MONO # eCW1 ([facility]) 2.2 1.5-5.0 LYMPH # eCW1 ([facility]) 0.0 0.0-0.2 BASO # eCW1 ([facility]) 0.3 0.0-0.5 EOS # eCW1 ([facility]) ID Date Data Source Type and Screen Prenatal1 10/13/2019 12:00:00 AM EST eCW1 ([facility]) Name Value Range Interpretation Code Description Data Risa rce(s) Supporting Document(s) NEGATIVE AB SCREEN PNP1 GEL (VIS) eCW1 ([facility]) ID Date Data Source [id number] 09/23/2019 05:37:00 PM EST MEDENT ([facility]) Name Value Range Interpretation Code Description Data Risa rce(s) Supporting Document(s) Bacteria identified in Urine by Culture FULL REPORT IN L <SEE NOTE> MEDENT ([facility]) FULL REPORT IN LAB NOTES (eCW and [facility] ). NO GROWTH Procedure Social History Code Duration Value Status Description Data Source(s ) Smoking 03/03/2020 12:00:00 AM EDT Never Smoker completed Never S moker eCW1 ([facility]) Smoking 03/03/2020 12:00:00 AM EDT Never Smoker completed Never S moker eCW1 ([facility]) Smoking 03/03/2020 12:00:00 AM EDT Never Smoker completed Never S moker eCW1 ([facility]) Smoking 03/03/2020 12:00:00 AM EDT Never Smoker completed Never S moker eCW1 ([facility]) Smoking 03/03/2020 12:00:00 AM EDT Never Smoker completed Never S moker eCW1 ([facility]) Smoking 02/19/2020 12:00:00 AM EDT Never Smoker completed Never S moker eCW1 ([facility]) Smoking 01/08/2020 12:00:00 AM EDT Never Smoker completed Never S moker eCW1 ([facility]) Smoking 01/08/2020 12:00:00 AM EDT Never Smoker completed Never S moker eCW1 ([facility]) Vital Signs ID Date Data Source UNK Name Value Range Interpretation Code Description Data Source(s) Diastolic blood pressure 72 mm[Hg] 72 mm[Hg] eCW1 ([facility]) Systolic blood pressure 130 mm[Hg] 130 mm[Hg] e CW1 ([facility]) Body mass index (BMI) [Ratio] 41.985 kg/m2 41.9 85 kg/m2 W1 ([facility]) Body height 64 [in_i] 64 [in_i] W1 ([facility]) Body weight 244.6 [lb_av] 244.6 [lb_av] eCW1 ([facility]) Diastolic blood pressure 80 mm[Hg] 80 mm[Hg] eCW1 ([facility]) Systolic blood pressure 134 mm[Hg] 134 mm[Hg] e CW1 ([facility]) Body mass index (BMI) [Ratio] 41.883 kg/m2 41.8 83 kg/m2 W1 ([facility]) Body height 64 [in_i] 64 [in_i] eCW1 ([facility]) Body weight 244 [lb_av] 244 [lb_av] [facility] Diastolic blood pressure 76 mm[Hg] 76 mm[Hg] eCW1 ([facility]) Systolic blood pressure 126 mm[Hg] 126 mm[Hg] e CW1 ([facility]) Body mass index (BMI) [Ratio] 41.883 kg/m2 41.8 83 kg/m2 eCW1 ([facility]) Body height 64 [in_i] 64 [in_i] eCW1 ([facility]) Body weight 244 [lb_av] 244 [lb_av] eCW1 [facility] Diastolic blood pressure 70 mm[Hg] 70 mm[Hg] eCW1 ([facility]) Systolic blood pressure 102 mm[Hg] 102 mm[Hg] e CW1 ([facility]) Body mass index (BMI) [Ratio] 41.368 kg/m2 41.3 68 kg/m2 W1 ([facility]) Body height 64 [in_i] 64 [in_i] eCW1 ([facility]) Body weight 241 [lb_av] 241 [lb_av] eCW1 ([facility]) Diastolic blood pressure 76 mm[Hg] 76 mm[Hg] eCW1 ([facility]) Systolic blood pressure 130 mm[Hg] 130 mm[Hg] e CW1 ([facility]) Body mass index (BMI) [Ratio] 41.711 kg/m2 41.7 11 kg/m2 W1 ([facility]) Body height 64 [in_us] 64 [in_us] eCW1 ([facility]) Body weight Measured 243 [lb_av] 243 [lb_av] eC W1 ([facility]) Diastolic blood pressure 74 mm[Hg] 74 mm[Hg] eCW1 ([facility]) Systolic blood pressure 126 mm[Hg] 126 mm[Hg] e CW1 ([facility]) Body mass index (BMI) [Ratio] 41.883 kg/m2 41.8 83 kg/m2 eCW1 ([facility]) Body height 64 [in_us] 64 [in_us] eCW1 ([facility]) Body weight Measured 244 [lb_av] 244 [lb_av] eC W1 ([facility]) Diastolic blood pressure 76 mm[Hg] 76 mm[Hg] eCW1 ([facility]) Systolic blood pressure 128 mm[Hg] 128 mm[Hg] e CW1 ([facility]) Body mass index (BMI) [Ratio] 41.711 kg/m2 41.7 11 kg/m2 eCW1 ([facility]) Body height 64 [in_us] 64 [in_us] eCW1 ([facility]) Body weight Measured 243 [lb_av] 243 [lb_av] eC W1 ([facility]) Body mass index (BMI) [Ratio] 41.2 kg/m2 41.2 k g/m2 MEDENT ([facility], [facility]) Body height 64 [in_i] 64 [in_i] MEDENT ([facility], [facility]) 5'4" Body weight 240.00 [lb_av] 240.00 [lb_av] MEDEN T ([facility], [facility]) Body temperature 98.5 [degF] 98.5 [degF] MEDENT ([facility], [facility]) Oxygen saturation in Arterial blood by Pulse oximetry 98 % 98 % MEDENT ([facility], [facility]) Respiratory rate 16 /min 16 /min MEDENT ( [facility], [facility]) Heart rate 88 /min 88 /min MEDENT ([facility], [facility]) Diastolic blood pressure 88 mm[Hg] 88 mm[Hg] MEDENT ([facility], [facility]) Systolic blood pressure 140 mm[Hg] 140 mm[Hg] M EDENT ([facility], [facility]) Body mass index (BMI) [Ratio] 41.2 kg/m2 41.2 k g/m2 [facility] ([facility], [facility]) Body height 64 [in_i] 64 [in_i] [facility] ([facility]) 5'4" Body weight 240.00 [lb_av] 240.00 [lb_av] MEDEN T ([facility], [facility]) Body temperature 98.7 [degF] 98.7 [degF] [facility] ([facility]) Oxygen saturation in Arterial blood by Pulse oximetry 99 % 99 % [facility] ([facility]) Respiratory rate 16 /min 16 /min [facility] ( [facility]) Heart rate 88 /min 88 /min [facility] ([facility], [facility]) Diastolic blood pressure 84 mm[Hg] 84 mm[Hg] [facility] ([facility]) Systolic blood pressure 129 mm[Hg] 129 [facility]Hg[facility] Patient Treatment Plan of Care Planned Activity Planned Date Details Description Data Source (s) valacyclovir 500 MG Oral Tablet [Valtrex] 03/03/2020 12:00:00 AM ED T eCW1 ([facility]) Metronidazole 500 MG Oral Tablet 03/03/2020 12:00:00 AM EDT eCW1 ([facility]) valacyclovir 500 MG Oral Tablet [Valtrex] 03/03/2020 12:00:00 AM ED T eCW1 ([facility]) Metronidazole 500 MG Oral Tablet 03/03/2020 12:00:00 AM EDT eCW1 ([facility]) valacyclovir 500 MG Oral Tablet [Valtrex] 03/03/2020 12:00:00 AM ED T eCW1 ([facility]) Metronidazole 500 MG Oral Tablet 03/03/2020 12:00:00 AM EDT eCW1 ([facility]) valacyclovir 500 MG Oral Tablet [Valtrex] 03/03/2020 12:00:00 AM ED T eCW1 ([facility]) Metronidazole 500 MG Oral Tablet 03/03/2020 12:00:00 AM EDT eCW1 ([facility]) valacyclovir 500 MG Oral Tablet [Valtrex] 03/03/2020 12:00:00 AM ED T eCW1 ([facility]) Metronidazole 500 MG Oral Tablet 03/03/2020 12:00:00 AM EDT eCW1 ([facility])
[2020-09-03] MEDS ORDERED: MIDAZOLAM INJ 2MG/2ML VIAL (J2250 PER 1MG) As Ordered ONE (08:01)
[2020-09-03] MEDS ORDERED: ePHEDrine SULFATE 25 MG/5 ML(5MG/ML) SYRINGE As Ordered ONE (08:02)
[2020-09-03] MEDS ORDERED: PHENYLephrine 500MCG 5ML (100MCG/ML) SYRINGE As Ordered ONE (08:02)
[2020-09-03] MEDS ORDERED: fentaNYL 250 MCG/5 ML INJECTION (J3010) As Ordered ONE (08:02)
[2020-09-03] MEDS ORDERED: ACETAMINOPHEN 1000MG 100ML IV BTL (OFIRMEV) (J0131 PER 10MG) As Ordered ONE (08:03)
[2020-09-03] MEDS ORDERED: ONDANSETRON 4MG/2ML VIAL As Ordered ONE ×2 (08:03→11:18)
[2020-09-03] MEDS ORDERED: SUGAMMADEX SODIUM 500 MG/5 ML VIAL (BRIDION) As Ordered ONE (08:03)
[2020-09-03] MEDS ORDERED: propofoL 200 MG/20 ML VIAL As Ordered ONE (08:03)
[2020-09-03] MEDS ORDERED: LIDOCAINE 2% 100MG/5ML SDV (FOR ANES.) As Ordered ONE (08:03)
[2020-09-03] MEDS ORDERED: dexameTHASONE 4 MG/ML 1ML VIAL (J1100 PER 1MG) As Ordered ONE (08:03)
[2020-09-03] MEDS ORDERED: ROCURONIUM BROMIDE 50 MG/5 ML VIAL As Ordered ONE (08:03)
[2020-09-03] MEDS ORDERED: KETOROLAC 60MG 2ML VIAL As Ordered ONE (08:08)
[2020-09-03] MEDS ORDERED: BUPIVACAINE/EPIN 0.25% 30 ML VIAL As Ordered ONE (09:29)
[2020-09-03] MEDS ORDERED: ONDANSETRON 4MG/2ML VIAL IV PRN (11:15)
[2020-09-03] MEDS ORDERED: LR 1,000 ML IV SCH (11:15)
[2020-09-03] MEDS ORDERED: HYDROMORPHONE HCL 0.5 MG/ 0.5 ML SYRINGE (J1170 PER 1) As Ordered ONE (11:18)
[2020-09-03] MEDS: HYDROMORPHONE HCL 0.5 MG/ 0.5 ML SYRINGE (J1170 PER 1) IV PRN ×8 (11:23→13:37)
[2020-09-03] MEDS ORDERED: NORCO, ANEXSIA 5/325MG TABLET (HYDROcodone/ACETAMINOPHEN) PO PRN (11:30)
[2020-09-03] MEDS: fentaNYL 100 MCG/2 ML INJECTION (J3010) IV PRN ×8 (11:43→12:48)
[2020-09-03] MEDS ORDERED: fentaNYL 100 MCG/2 ML INJECTION (J3010) As Ordered ONE (12:13)
[2020-09-03] MEDS ORDERED: oxyCODONE 5MG TAB As Ordered ONE ×2 (12:15→12:33)
[2020-09-03] MEDS: oxyCODONE 5MG TAB PO PRN ×2 (12:17→12:48)
[2020-09-03 14:35] VITALS: BP 126/61
--- NOTE | 2020-09-03 18:37 | RO ---
OPERATIVE NOTE DATE OF OPERATION: 09/03/2020 PREOPERATIVE DIAGNOSIS: Symptomatic cholelithiasis POSTOPERATIVE DIAGNOSIS: Symptomatic cholelithiasis PROCEDURE: Robotic cholecystectomy. SURGEON: Miguel Fatima DO MOBILE UI DEVELOPER: Sanaz Cruz ANESTHESIA: General. ESTIMATED BLOOD LOSS: 5 ml COMPLICATION: None. INDICATIONS FOR PROCEDURE: The patient is a 30-year-old female who presents with right upper quadrant pain and found to have symptomatic cholelithiasis. Recommendation was to proceed with robotic cholecystectomy. Risks and benefits of procedure were not limited to, but included infection, hernia formation, damage to surrounding structures, need for further surgery. The risks were discussed in detail with the patient, informed consent was obtained and procedure was planned. DESCRIPTION OF PROCEDURE: The patient was brought back to the operating room 7. After sufficient sedation, the abdomen was sterilely prepped and draped. Next, time-out was done to confirmed proper patient and proper procedure. Following that, an 8 mm incision was made in the left upper quadrant, Veress needle inserted and the abdomen was insufflated to 15 mmHg. The Veress needle was then removed. An 8 mm Optiview port was used to gain access to the abdomen, which the abdomen was entered. Three more ports were placed across the right upper quadrant. The fundus and gallbladder were elevated up towards the right shoulder, thus cystic duct and cystic artery were dissected free using a combination of blunt and sharp dissection. Once they were both clearly identified, they were both doubly clipped and cut. The gallbladder was then dissected from the gallbladder fossa using electrocautery. It was removed intact, placed inside of a 5 mm Endo Catch bag and brought out through the right lateral port site. Once the gallbladder was removed, the abdomen was examined to confirm hemostasis. 30 V-Loc suture was then used intraperitoneally with the robot to close the right lateral port site. Once that was completed, the abdomen was desufflated. Skin incision was closed with 4-0 Vicryl subcuticular suture. The abdomen was clean and dry and Steri-Strips and 4 x 4 and tape were applied.
== END 2020-09-03 14:58 | disposition home or self-care (01) ==
LOC: M SDC 07:40
PROVIDERS: ATTEND Surgery
DX: K80.10 Calculus of gallbladder with chronic cholecystitis without obstruction (principal); F41.9 Anxiety disorder, unspecified; F43.10 Post-traumatic stress disorder, unspecified; E66.9 Obesity, unspecified; Z68.41 Body mass index [BMI] 40.0-44.9, adult
CPT/HCPCS: 47562; 81025; 88304; 96374; 96375; 96376; J0131; J1100; J1170; J1885; J2250; J2370; J2405; J3010; S2900

== ENCOUNTER 2021-03-20 14:00 | Emergency (ER) | payer OTHER ==
[~2021-03-20] VITALS: Ht 162.6 cm; Wt 102.5 kg
[~2021-03-20 14:00] MED LIST changes: -ACET-908 PO; +ACET-910 PO; -LR 1,000 ML IV ONE
[2021-03-20] MEDS ORDERED: LIDOCAINE 4% CREAM 5GM (LMX4) TOP ONE (16:15)
[2021-03-20] MEDS ORDERED: IBUPROFEN 600MG TAB PO ONE (16:15)
[2021-03-20] MEDS ORDERED: ACETAMINOPHEN 500 MG TAB PO ONE (16:15)
--- NOTE | 2021-03-20 18:02 | REP ---
INDICATION: injury 4 days ago, neg XR, pain worsening. COMPARISON: Plain film study of the right foot dated 02/24/2019. TECHNIQUE: CT of the right ankle without IV contrast. FINDINGS: Mineralization and joint spaces are normal. There is no fracture or dislocation. 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 IMPRESSION: No fracture or dislocation. 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 <Electronically signed by Miguel Bueno > 03/20/21 [id number]
--- NOTE | 2021-03-20 18:05 | REP ---
INDICATION: injury 4 days ago, neg XR, pain worsening. COMPARISON: Right foot plain film study dated 02/24/2019. TECHNIQUE: CT of the right foot without IV contrast. FINDINGS: There is no fracture or dislocation. Mineralization and joint spaces are normal. 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 IMPRESSION: No fracture or dislocation. Small accessory navicular ossicle. <Electronically signed by Miguel Bueno > 03/20/21 [id number]
[2021-03-20 18:28] VITALS: BP 126/75
== END 2021-03-20 18:31 | disposition home or self-care (01) ==
LOC: M ED 14:00
DX: S99.921A Unspecified injury of right foot, initial encounter (principal); X58.XXXA Exposure to other specified factors, initial encounter; Y92.89 Other specified places as the place of occurrence of the external cause; Y93.02 Activity, running

== ENCOUNTER 2022-01-07 10:41 | Emergency (ER) | payer OTHER ==
[~2022-01-07] VITALS: Ht 162.6 cm; Wt 100.0 kg
[2022-01-07] MEDS ORDERED: AMOX875T PO (10:49)
[2022-01-07] MEDS ORDERED: KETOROLAC 60MG 2ML VIAL IM ONE (11:40)
[2022-01-07] MEDS ORDERED: NAPR1TAB86 PO (11:46)
[2022-01-07 12:32] VITALS: BP 133/77
== END 2022-01-07 12:54 | disposition home or self-care (01) ==
LOC: M ED 10:41
DX: R68.84 Jaw pain (principal); G89.18 Other acute postprocedural pain
CPT/HCPCS: 70110; 96372; 99283; J1885

== ENCOUNTER → 2022-08-28 | Outpatient (CLI) | payer OTHER ==
[~2022-08-28] MED LIST changes: +AMOX875T PO; +NAPR1TAB86 PO
[2022-08-28 12:30] LABS: HEMATOCRIT 37.5 % (36.0-47.0); HEMOGLOBIN 11.9 g/dl (12.0-15.5); MEAN CORPUSCULAR HEMOGLOBIN 26.8 pg (27.0-33.0); MEAN CORPUSCULAR HGB CONC 31.7 g/dl (32.0-36.5); MEAN CORPUSCULAR VOLUME 84.5 fl (80.0-96.0); PLATELET COUNT, AUTOMATED 241 10^3/uL (150-450); RED BLOOD COUNT 4.44 10^6/uL (4.00-5.40); WHITE BLOOD COUNT 9.6 10^3/uL (4.0-10.0)
[2022-08-28 13:28] LABS: HIV 1&2 SCREEN CENTAUR NEGATIVE (NEGATIVE)
[2022-08-28 13:30] LABS: GC DNA AMPLIFICATION NEGATIVE (NEGATIVE)
[2022-08-28 13:36] LABS: HEPATITIS C VIRUS ABY INDEX 0.1 INDEX (<0.8)
== END ==
LOC: M PLALAB 08:19
PROVIDERS: ATTEND Advanced Practice Midwife
DX: Z36.9 Encounter for antenatal screening, unspecified (principal)

== ENCOUNTER → 2022-09-18 | Outpatient (REF) | payer OTHER | LOC: M SFHCWAGY 13:15 | PROVIDERS: ATTEND Obstetrics & Gynecology | DX: R82.90 Unspecified abnormal findings in urine (principal) ==

== ENCOUNTER → 2022-10-19 | Outpatient (CLI) | payer OTHER | LOC: M WHC 11:12 | PROVIDERS: ATTEND Obstetrics & Gynecology | DX: Z34.92 Encounter for supervision of normal pregnancy, unspecified, second trimester (principal) ==

== ENCOUNTER → 2022-11-14 | Outpatient (CLI) | payer OTHER | LOC: M WHC 07:22 | PROVIDERS: ATTEND Obstetrics & Gynecology | DX: Z34.92 Encounter for supervision of normal pregnancy, unspecified, second trimester (principal) ==

== ENCOUNTER 2022-11-21 13:11 | Emergency (ER) | payer OTHER ==
[2022-11-21] MEDS ORDERED: PRENTAB9 PO (13:57)
[2022-11-21] MEDS ORDERED: OMEP-173 PO (13:57)
== END 2022-11-21 14:01 | disposition admitted as inpatient to this hospital (09) ==
LOC: M ED 13:11
DX: O21.9 Vomiting of pregnancy, unspecified (principal); Z3A.00 Weeks of gestation of pregnancy not specified

== ENCOUNTER 2022-11-21 13:24 | Outpatient (CLI) | payer OTHER ==
[~2022-11-21] VITALS: Ht 162.6 cm; Wt 109.9 kg
[2022-11-21 13:45] VITALS: BP 120/68
[2022-11-21] MEDS ORDERED: PRENTAB9 PO (13:57)
[2022-11-21] MEDS ORDERED: OMEP-173 PO (13:57)
[2022-11-21] MEDS ORDERED: ONDANSETRON 4MG TAB PO ONE (14:05)
[2022-11-21] MEDS ORDERED: LOPERAMIDE 2 MG CAPLET PO ONE (15:20)
== END 2022-11-21 16:12 | disposition home or self-care (01) ==
LOC: M LDO 13:24
PROVIDERS: ATTEND Obstetrics & Gynecology
DX: O21.8 Other vomiting complicating pregnancy (principal); O26.892 Other specified pregnancy related conditions, second trimester; R19.7 Diarrhea, unspecified; Z3A.23 23 weeks gestation of pregnancy
CPT/HCPCS: 59025; G0463

== ENCOUNTER → 2022-12-19 | Outpatient (CLI) | payer OTHER ==
[~2022-12-19] MED LIST changes: +OMEP-173 PO
== END ==
LOC: M WHC 15:09
PROVIDERS: ATTEND Advanced Practice Midwife
DX: O44.42 Low lying placenta NOS or without hemorrhage, second trimester (principal); Z53.9 Procedure and treatment not carried out, unspecified reason

== ENCOUNTER → 2022-12-19 | Outpatient (CLI) | payer OTHER ==
[2022-12-19 14:14] LABS: HEMOGLOBIN 10.8 g/dl (12.0-15.5); MEAN CORPUSCULAR HEMOGLOBIN 26.6 pg (27.0-33.0); MEAN CORPUSCULAR HGB CONC 31.8 g/dl (32.0-36.5); MEAN CORPUSCULAR VOLUME 83.7 fl (80.0-96.0); PLATELET COUNT, AUTOMATED 256 10^3/uL (150-450); RED BLOOD COUNT 4.06 10^6/uL (4.00-5.40); WHITE BLOOD COUNT 11.9 10^3/uL (4.0-10.0)
[2022-12-19 16:01] LABS: GC DNA AMPLIFICATION NEGATIVE (NEGATIVE)
== END ==
LOC: M PLALAB 08:12
PROVIDERS: ATTEND Obstetrics & Gynecology
DX: Z34.92 Encounter for supervision of normal pregnancy, unspecified, second trimester (principal)

== ENCOUNTER → 2023-01-16 | Outpatient (CLI) | payer OTHER, SELFPAY ==
[~2023-01-16] MED LIST changes: +ACET-683 PO; +METR-265 PO
== END ==
LOC: M WHC 07:23
PROVIDERS: ATTEND Advanced Practice Midwife
DX: O44.42 Low lying placenta NOS or without hemorrhage, second trimester (principal); Z3A.32 32 weeks gestation of pregnancy

== ENCOUNTER 2023-01-19 13:21 | Outpatient (CLI) | payer SELFPAY ==
[~2023-01-19] VITALS: Ht 162.6 cm; Wt 109.0 kg
[~2023-01-19 13:21] MED LIST changes: -ACET-683 PO; -METR-265 PO
[2023-01-19 13:52] VITALS: BP 111/66
[2023-01-19] MEDS ORDERED: ACET-683 PO (13:54)
[2023-01-19] MEDS ORDERED: HOME MED LIST COMPLETE! XX SCH (13:55)
[2023-01-19] MEDS ORDERED: metroNIDAZOLE (FLAGYL) 500MG TABLET PO ONE (15:40)
[2023-01-19] MEDS ORDERED: METR-265 PO (15:44)
== END 2023-01-19 15:45 | disposition home or self-care (01) ==
LOC: M LDO 13:21
PROVIDERS: ATTEND Advanced Practice Midwife
DX: O23.593 Infection of other part of genital tract in pregnancy, third trimester (principal); B37.9 Candidiasis, unspecified; Z3A.31 31 weeks gestation of pregnancy
CPT/HCPCS: 59025; 81000; 81015; 87086; G0463

== ENCOUNTER → 2023-02-21 | Outpatient (REF) | payer OTHER ==
[~2023-02-21] MED LIST changes: +ACET-683 PO; +METR-265 PO
== END ==
LOC: M PLALAB 07:42
PROVIDERS: ATTEND Obstetrics & Gynecology
DX: Z36.85 Encounter for antenatal screening for Streptococcus B (principal); Z3A.36 36 weeks gestation of pregnancy

== ENCOUNTER 2023-03-12 19:00 | Inpatient (IN) | payer OTHER, SELFPAY ==
[2023-03-12] VITALS (21 sets, daily range): BP systolic 105–134; BP diastolic 54–79
[~2023-03-12] VITALS: Ht 162.6 cm; Wt 107.7 kg
[2023-03-12] MEDS ORDERED: VALT1TAB PO (19:23)
[2023-03-12] MEDS ORDERED: HOME MED LIST COMPLETE! XX SCH (19:25)
[2023-03-12] MEDS ORDERED: LR 1,000 ML IV ONE (19:50)
[2023-03-12 20:18] LABS: BASO % 0.2 % (0.0-1.0); EOS # 0.1 10^3/uL (0.0-0.5); EOS % 0.5 % (0.0-3.0); HEMATOCRIT 29.7 % (36.0-47.0); HEMOGLOBIN 9.5 g/dl (12.0-15.5); LYMPH % 11.8 % (24.0-44.0); MEAN CORPUSCULAR HEMOGLOBIN 24.3 pg (27.0-33.0); MONO # 0.9 10^3/uL (0.0-0.8); MONO % 5.1 % (2.0-8.0); NEUTROPHILS # 13.6 10^3/uL (1.5-8.5); NEUTROPHILS % 81.7 % (36.0-66.0); PLATELET COUNT, AUTOMATED 259 10^3/uL (150-450); RED BLOOD COUNT 3.91 10^6/uL (4.00-5.40); WHITE BLOOD COUNT 16.7 10^3/uL (4.0-10.0)
[2023-03-12] MEDS ORDERED: diphenhydrAMINE 50MG/ML VIAL IV PRN (20:35)
[2023-03-12] MEDS ORDERED: NALOXONE INJ 0.4MG/1ML VIAL IV PRN (20:35)
[2023-03-12] MEDS ORDERED: FENTANYL/ROPIVACAINE/NACL BAG 100 ML EPIDURAL SCH (20:35)
[2023-03-12] MEDS ORDERED: EPIDURAL/PCA KEYS XX PRN (20:35)
[2023-03-12] MEDS ORDERED: ePHEDrine SULFATE 25 MG/5 ML(5MG/ML) SYRINGE IVP PRN (20:35)
[2023-03-12] MEDS ORDERED: ONDANSETRON 4MG 2ML VIAL IV PRN (20:35)
[2023-03-12] MEDS ORDERED: LR 500 ML IV PRN (20:35)
[2023-03-12] MEDS ORDERED: OXYTOCIN DRIP 30 UNITS in IV 1 EA IV PRN (21:50)
[2023-03-12] MEDS ORDERED: OXYTOCIN INJ 10UNITS/ML 1ML VIAL IM PRN (21:50)
[2023-03-12] MEDS ORDERED: LIDOCAINE 1% MDV 20ML VIAL INFIL PRN (21:50)
[2023-03-12] MEDS ORDERED: METHYLERGONOVINE MALEATE 0.2MG/ML 1ML VIAL IM PRN (21:50)
[2023-03-12] MEDS ORDERED: CARBOPROST TROMETHAMINE 250 MCG/ML AMP IM PRN (21:50)
[2023-03-12] MEDS ORDERED: TRANEXAMIC ACID INJection 1,000 MG in NS 100 ML IV PRN (21:50)
[2023-03-13] VITALS (13 sets, daily range): BP systolic 100–132; BP diastolic 50–76; O2SAT 100
[2023-03-13] MEDS: LR 1,000 ML IV SCH ×2 (00:21→05:29)
[2023-03-13] MEDS ORDERED: OXYTOCIN DRIP 30 UNITS in IV 1 EA IV SCH (01:10)
[2023-03-13] MEDS ORDERED: DOCUSATE SODIUM 100MG CAPSULE PO PRN (08:30)
[2023-03-13] MEDS ORDERED: RHOGAM 300MCG (1500IU) INJ IM SCH (08:30)
[2023-03-13] MEDS ORDERED: ACETAMINOPHEN 500 MG TAB PO PRN (08:30)
[2023-03-13] MEDS ORDERED: ACETAMINOPHEN TAB 650MG DOSE (2X325MG) PO PRN (08:30)
[2023-03-13] MEDS ORDERED: DIBUCAINE 1% OINTMENT 30GM TOP PRN (08:30)
[2023-03-13] MEDS ORDERED: IBUPROFEN 800 MG TAB PO PRN (08:30)
[2023-03-13] MEDS ORDERED: IBUPROFEN 600MG TAB PO PRN (08:30)
[2023-03-13] MEDS ORDERED: ANUSOL HC CREAM 30GM TOP PRN (08:30)
[2023-03-13] MEDS ORDERED: MOM 30ML SUSPENSION UDC PO PRN (08:30)
[2023-03-13] MEDS ORDERED: PRENATAL VITAMINS CHEWABLE TABLET PO SCH (09:00)
[2023-03-13] MEDS ORDERED: ACET-683 PO (11:54)
[2023-03-13] MEDS ORDERED: IBUP80TA PO (11:54)
[2023-03-15] MEDS ORDERED: MEASLES,MUMPS,RUBELLA VACCINE INJ (MMR-II) SC.IMMUN ONE (09:00)
== END 2023-03-13 13:30 | disposition home or self-care (01) | DRG 560 ==
LOC: M LDO 19:00 → M LDI 20:12 → M OBS 03-13 10:24
PROVIDERS: ADMIT Advanced Practice Midwife; ATTEND Advanced Practice Midwife
PROC: 10E0XZZ Delivery of Products of Conception, External Approach (ICD-10-PCS; principal; 2023-03-13)
DX: O98.32 Other infections with a predominantly sexual mode of transmission complicating childbirth (principal); E66.01 Morbid (severe) obesity due to excess calories; Z3A.39 39 weeks gestation of pregnancy; O99.214 Obesity complicating childbirth; Z79.899 Other long term (current) drug therapy; O77.0 Labor and delivery complicated by meconium in amniotic fluid; Z37.0 Single live birth

== ENCOUNTER 2024-12-15 13:51 | Inpatient (IN) | payer OTHER ==
[~2024-12-15] VITALS: Ht 162.6 cm; Wt 107.0 kg
[~2024-12-15 13:51] MED LIST changes: +ONDA-282 PO; -ONDA4TAB6 PO; +VALT1TAB PO
[2024-12-15 14:34] LABS: BASO % 0.2 % (0.0-1.0); EOS # 0.1 10^3/uL (0.0-0.5); EOS % 0.8 % (0.0-3.0); HEMATOCRIT 41.6 % (36.0-47.0); HEMOGLOBIN 13.8 g/dl (12.0-15.5); LYMPH # 1.4 10^3/uL (1.5-5.0); LYMPH % 8.5 % (24.0-44.0); MEAN CORPUSCULAR HEMOGLOBIN 28.3 pg (27.0-33.0); MEAN CORPUSCULAR HGB CONC 33.2 g/dl (32.0-36.5); MEAN CORPUSCULAR VOLUME 85.4 fl (80.0-96.0); MONO # 0.8 10^3/uL (0.0-0.8); NEUTROPHILS # 13.9 10^3/uL (1.5-8.5); NEUTROPHILS % 85.1 % (36.0-66.0); PLATELET COUNT, AUTOMATED 277 10^3/uL (150-450); RED BLOOD COUNT 4.87 10^6/uL (4.00-5.40); WHITE BLOOD COUNT 16.3 10^3/uL (4.0-10.0)
[2024-12-15 15:04] LABS: LIPASE 425 U/L (12-53)
[2024-12-15 15:06] LABS: ALBUMIN 3.9 G/DL (3.2-5.2); ALKALINE PHOSPHATASE 172 U/L (35-104); ALT/SGPT 42 U/L (7.0-40); AST/SGOT 49 U/L (<34); BILIRUBIN,DIRECT 0.3 MG/DL (<0.4); BILIRUBIN,TOTAL 0.8 MG/DL (0.3-1.2); BLOOD UREA NITROGEN 11 MG/DL (9-23); CALCIUM LEVEL 9.5 MG/DL (8.5-10.1); CARBON DIOXIDE LEVEL 24 MMOL/L (20-31); CHLORIDE LEVEL 108 MMOL/L (98-107); CREATININE FOR GFR 0.74 MG/DL (0.55-1.30); GLOMERULAR FILTRATION RATE > 90.0 (>60); GLUCOSE, FASTING 96 MG/DL (60-100); POTASSIUM SERUM 4.2 MMOL/L (3.5-5.1); SODIUM LEVEL 144 MMOL/L (136-145); TOTAL PROTEIN 6.8 G/DL (5.7-8.2)
[2024-12-15] MEDS: KETOROLAC 30 MG/ML 1ML VIAL IV ONE (17:35)
[2024-12-15 17:36] LABS: HCG, SERUM QUALITATIVE NEGATIVE (NEGATIVE)
[2024-12-15 17:41] LABS: KETONE, URINE AUTO RFX 1+ mg/dL (NEGATIVE); MUCUS, URINE RFX SMALL (NEGATIVE); NITRITE, URINE AUTO RFX NEGATIVE (NEGATIVE); RBC, URINE AUTO RFX 4 /HPF (0-3); SQUAM EPITHELIAL CELL UR AURFX 5 /HPF (0-6)
[2024-12-15 17:42] LABS: LEUKOCYTE ESTERASE UR AUTO RFX 2+ (NEGATIVE)
[2024-12-15 17:43] LABS: WBC, URINE AUTO RFX 25 /HPF (0-3)
[2024-12-15] MEDS ORDERED: ISOVUE-370 76% 100ML VIAL As Ordered ONE (17:49)
[2024-12-15] MEDS: ONDANSETRON 4MG 2ML VIAL IV ONE (18:51)
[2024-12-15] MEDS: MORPHINE 4 MG/ML 1ML VIAL IV ONE ×3 (18:54→22:49)
[2024-12-15] MEDS: PANTOPRAZOLE 40MG VIAL IV ONE (20:07)
[2024-12-15 20:47] LABS: CK-MB VALUE MASS < 1.0 NG/ML (<3.6)
[2024-12-15 20:51] LABS: CPK CREATINE PHOSPHOKINASE 67 U/L (34-145); MB/CK RELATIVE INDEX 1.49 (< OR =4)
[2024-12-15 22:45] LABS: BASO % 0.2 % (0.0-1.0); EOS # 0.2 10^3/uL (0.0-0.5); EOS % 1.8 % (0.0-3.0); HEMATOCRIT 40.3 % (36.0-47.0); HEMOGLOBIN 13.2 g/dl (12.0-15.5); LYMPH # 2.2 10^3/uL (1.5-5.0); LYMPH % 23.5 % (24.0-44.0); MEAN CORPUSCULAR HEMOGLOBIN 28.1 pg (27.0-33.0); MEAN CORPUSCULAR HGB CONC 32.8 g/dl (32.0-36.5); MEAN CORPUSCULAR VOLUME 85.7 fl (80.0-96.0); MONO # 0.6 10^3/uL (0.0-0.8); MONO % 6.9 % (2.0-8.0); NEUTROPHILS # 6.3 10^3/uL (1.5-8.5); NEUTROPHILS % 67.3 % (36.0-66.0); PLATELET COUNT, AUTOMATED 245 10^3/uL (150-450); WHITE BLOOD COUNT 9.3 10^3/uL (4.0-10.0)
[2024-12-15] MEDS: METOCLOPRAMIDE INJ 10MG/2ML VIAL IV ONE (22:49)
[2024-12-15] MEDS: NS (Normal Saline) 0.9% 1,000 ML IV ONE (22:49)
[2024-12-15 23:15] LABS: LIPASE 101 U/L (12-53)
[2024-12-15 23:22] LABS: ALBUMIN 3.8 G/DL (3.2-5.2); ALKALINE PHOSPHATASE 163 U/L (35-104); ALT/SGPT 63 U/L (7.0-40); AST/SGOT 76 U/L (<34); BILIRUBIN,DIRECT 0.5 MG/DL (<0.4); TOTAL PROTEIN 6.5 G/DL (5.7-8.2)
[2024-12-16] MEDS ORDERED: HOME MED LIST COMPLETE! XX SCH (00:55)
[2024-12-16] MEDS: ONDANSETRON 4MG 2ML VIAL IV ONE (02:30)
[2024-12-16] MEDS: MORPHINE 4 MG/ML 1ML VIAL IV ONE (02:30)
[2024-12-16] MEDS ORDERED: MOM 30ML SUSPENSION UDC PO PRN (03:55)
[2024-12-16] MEDS ORDERED: MAALOX 30 ML SUSP *UDC PO PRN (03:55)
[2024-12-16 05:05] VITALS: BP 144/93; TEMP 97.7; O2SAT 100
[2024-12-16] MEDS: KETOROLAC 30 MG/ML 1ML VIAL IV PRN (05:24)
[2024-12-16] MEDS: LR 1,000 ML IV SCH (05:24)
[2024-12-16 05:29] LABS: HEPATITIS C VIRUS ABY INDEX < 0.02 INDEX (<0.8)
[2024-12-16 05:30] LABS: HEPATITIS B CORE ANTIBODY IGM NEGATIVE (NEGATIVE)
[2024-12-16] MEDS: MEROPENEM INJ 1 GM in IV 1 EA IV SCH (06:24)
[2024-12-16 08:00] VITALS: BP 137/70; TEMP 98.1; O2SAT 99
[2024-12-16] MEDS ORDERED: MEROPENEM INJ 500 MG in IV 1 EA IV SCH (09:00)
[2024-12-16] MEDS: ONDANSETRON 4MG 2ML VIAL IV PRN (09:21)
[2024-12-16] MEDS: ENOXAPARIN 40MG/0.4ML SYRINGE (J1650 PER 10MG) SC SCH (09:22)
[2024-12-16] MEDS: ACETAMINOPHEN 325 MG TAB PO PRN (09:23)
[2024-12-16] MEDS: DOCUSATE SODIUM 100MG CAPSULE PO SCH (09:23)
[2024-12-16 12:00] VITALS: BP 133/71; TEMP 98.1; O2SAT 97
[2024-12-16 16:00] VITALS: BP 131/85; TEMP 98.1; O2SAT 99
[2024-12-16] MEDS ORDERED: PANT-23 PO (18:53)
[2024-12-17 17:03] LABS: HEPATITIS A IgG TOTAL NON-REACTIVE (NON-REACTIVE); HEPATITIS B CORE ANTIBODY IGG NON-REACTIVE (NON-REACTIVE)
== END 2024-12-16 19:12 | disposition home or self-care (01) | DRG 254 ==
LOC: EDBD 13:51 → M ED 13:51 → M ED INP 12-16 03:54 → M MSPAV 12-16 05:12
PROVIDERS: ADMIT Student in an Organized Health Care Education/Training Program; ATTEND Student in an Organized Health Care Education/Training Program
DX: K59.9 Functional intestinal disorder, unspecified (principal); K76.0 Fatty (change of) liver, not elsewhere classified; R82.81 Pyuria